=== PATIENT | male | born 1935 | race Caucasian/White ===

== ENCOUNTER 2016-11-16 12:30 | Outpatient (RCR) | payer MEDICARE ==
--- OUTSIDE RECORDS SUMMARY | 2016-08-22 10:51 | XMS REPORT | Continuity of Care Document ---
Author Author [facility] Organization [facility] Address Unknown Phone Unavailable Care Team Providers Care Box Builder Name Role Phone MANUEL EARL DO PCP Insurance Providers Payer Name Policy Number Subscriber Name Relationship [employer] [id number] Mandeep Torres 17 Self / Same As Patient [facility] [id number] Mandeep Torres 17 Self / Same As Patient Advance Directives Directive Response Recorded Date/Time Advance Directives No 09/01/14 10:00am Health Care Power of Tele Rn No 09/01/14 10:00am Organ Donor Yes 09/01/14 10:00am Resuscitation Status Full Code 09/01/14 10:00am Problems No known problems or medical conditions. Medications Medication Dose Route Sig Days/Qty Instructions Order Date Discontinued Date Status Atenolol 50 Mg PO DAILY 04/04/09 Active Gemfibrozil 600 Mg PO DAILY 04/04/09 Active Warfarin Sodium 5 Mg PO DAILY 04/04/09 Active Naproxen 04/04/09 07/27/10 Discontinued [Coum] 04/04/09 07/27/10 Discontinued Naproxen 440 Mg PO TWICE A DAY 07/27/10 11/03/12 Discontinued Famotidine (Pepcid) 1 Each PO DAILY 07/27/10 Active Naproxen Sodium 220 Mg PO TWICE A DAY 12/10/10 11/03/12 Discontinued [Vitamin B12 ] DIRECTED 12/10/10 Active Salsalate (Disalcid) 1 Each PO TWICE A DAY 11/03/12 05/19/14 Discontinued Colchicine 0.6 Mg PO 11/03/12 Active Polyethylene Glycol 0 PO BEDTIME 119 Qty 17 GM 11/06/12 Active Docusate Sodium 100 Mg PO TWICE A DAY 60 Qty 11/06/12 Active Bisacodyl 5 Mg PO DAILY 3 Days 11/06/12 Active Social History Social History Problem Response Recorded Date/Time Alcohol Use Occasionally Uses 11/06/2012 1:33pm Recreational Drug Use No 11/06/2012 1:33pm Recent Foreign Travel No 11/06/2012 1:33pm Recent Infectious Disease Exposure No 11/06/2012 1:33pm Hospitalization with Isolation Denies 11/06/2012 1:33pm Do you dip or chew tobacco? Yes 09/01/2014 10:00am Hospital Discharge Instructions No hospital discharge instructions. Plan of Care No plan of care. Functional Status No functional status results. Allergies, Adverse Reactions, Alerts Allergen Type Severity Reaction Status Last Updated simvastatin ([id number]) Allergy Unknown Active 07/27/10 Immunizations Name Given Type Date of Pneumonia Vaccine 10/26/10 Historical Date of Influenza Vaccine 06/25/12 Historical Vital Signs Acute Vital Signs Vital Response Date/Time Height 5 ft 10 in Weight 194 lb Body Mass Index 27.8 kg/m^2 Results No known relevant diagnostic tests, laboratory data and/or discharge summary. Procedures No known history of procedures. Encounters Encounter Location Date/Time Discharged Recurring Via [facility] 08/31/14 12:34pm
[2016-08-22 11:15] LABS: BASOPHILS % (AUTO) 1 % (0-10); EOSINOPHILS # (AUTO) 0.2 10^3/uL (0.0-0.3); EOSINOPHILS % (AUTO) 2 % (0-10); LYMPHOCYTES # (AUTO) 0.8 X 10^3 (1.0-4.0); LYMPHOCYTES % (AUTO) 13 % (12-44); MEAN CORPUSCULAR HEMOGLOBIN 25 PG (25-34); MEAN CORPUSCULAR HGB CONC 30 G/DL (32-36); MEAN CORPUSCULAR VOLUME 84 FL (80-99); MEAN PLATELET VOLUME 8.5 FL (7.4-10.4); MONOCYTES # (AUTO) 0.8 X 10^3 (0.0-1.0); MONOCYTES % (AUTO) 12 % (0-12); NEUTROPHILS # (AUTO) 4.8 X 10^3 (1.8-7.8); NEUTROPHILS % (AUTO) 73 % (42-75); PLATELET COUNT 610 10^3/uL (130-400); RED BLOOD COUNT 2.97 10^6/uL (4.35-5.85); RED CELL DISTRIBUTION WIDTH 15.4 % (10.0-14.5); WHITE BLOOD COUNT 6.6 10^3/uL (4.3-11.0)
[2016-08-22 11:37] LABS: ALANINE AMINOTRANSFERASE 6 U/L (0-55); ALBUMIN 3.7 G/DL (3.2-4.5); ANION GAP 9 MMOL/L (5-14); ASPARTATE AMINO TRANSFERASE 21 U/L (5-34); BILIRUBIN,TOTAL 0.4 MG/DL (0.1-1.0); BLOOD UREA NITROGEN 20 MG/DL (7-18); BUN/CREATININE RATIO 18; CALCIUM 8.4 MG/DL (8.5-10.1); CARBON DIOXIDE 22 MMOL/L (21-32); CHLORIDE 108 MMOL/L (98-107); CREATININE SERUM 1.14 MG/DL (0.60-1.30); GFR ESTIMATED > 60; GLUCOSE 115 MG/DL (70-105); POTASSIUM 4.2 MMOL/L (3.6-5.0); SODIUM 139 MMOL/L (135-145); TOTAL PROTEIN 6.8 G/DL (6.4-8.2)
[2016-08-22 15:18] LABS: %SAT TOTAL IRON BINDING CAPIC 2 % (15-50); TIBC 446 ug/dL (280-380)
[2016-08-23 07:41] LABS: FERRITIN 15 ng/mL (25-300); UIBC 436 ug/dL (55-450)
[2016-08-24 13:17] LABS: BASOPHILS % (AUTO) 1 % (0-10); EOSINOPHILS # (AUTO) 0.2 10^3/uL (0.0-0.3); EOSINOPHILS % (AUTO) 3 % (0-10); LYMPHOCYTES # (AUTO) 0.7 X 10^3 (1.0-4.0); LYMPHOCYTES % (AUTO) 12 % (12-44); MEAN CORPUSCULAR HEMOGLOBIN 27 PG (25-34); MEAN CORPUSCULAR HGB CONC 32 G/DL (32-36); MEAN CORPUSCULAR VOLUME 83 FL (80-99); MEAN PLATELET VOLUME 8.6 FL (7.4-10.4); MONOCYTES # (AUTO) 0.9 X 10^3 (0.0-1.0); MONOCYTES % (AUTO) 15 % (0-12); NEUTROPHILS # (AUTO) 4.2 X 10^3 (1.8-7.8); NEUTROPHILS % (AUTO) 70 % (42-75); PLATELET COUNT 550 10^3/uL (130-400); RED BLOOD COUNT 3.64 10^6/uL (4.35-5.85); RED CELL DISTRIBUTION WIDTH 15.3 % (10.0-14.5)
[2016-08-24 14:38] LABS: PROTHROMBIN TIME PATIENT 22.5 SEC (12.2-14.7)
[2016-11-14 09:57] LABS: BASOPHILS % (AUTO) 1 % (0-10); EOSINOPHILS # (AUTO) 0.1 10^3/uL (0.0-0.3); EOSINOPHILS % (AUTO) 3 % (0-10); LYMPHOCYTES # (AUTO) 0.7 X 10^3 (1.0-4.0); LYMPHOCYTES % (AUTO) 19 % (12-44); MEAN CORPUSCULAR HEMOGLOBIN 31 PG (25-34); MEAN CORPUSCULAR HGB CONC 32 G/DL (32-36); MEAN CORPUSCULAR VOLUME 97 FL (80-99); MEAN PLATELET VOLUME 9.1 FL (7.4-10.4); MONOCYTES # (AUTO) 0.5 X 10^3 (0.0-1.0); MONOCYTES % (AUTO) 12 % (0-12); NEUTROPHILS # (AUTO) 2.6 X 10^3 (1.8-7.8); NEUTROPHILS % (AUTO) 66 % (42-75); PLATELET COUNT 320 10^3/uL (130-400); RED BLOOD COUNT 3.52 10^6/uL (4.35-5.85); RED CELL DISTRIBUTION WIDTH 16.2 % (10.0-14.5)
[2016-11-14 10:43] LABS: BILIRUBIN,TOTAL 0.3 MG/DL (0.1-1.0); CALCIUM 8.4 MG/DL (8.5-10.1); CREATININE SERUM 1.32 MG/DL (0.60-1.30); TOTAL PROTEIN 7.1 G/DL (6.4-8.2)
[~2016-11-16 12:30] MED LIST: AC325T PO; ASCO100083 PO; ATEN50TA PO; BISA5TAB81 PO; CHOL10003 PO; COLC0.6T53 PO; COUM; CYAN100053 IJ; DCS100C PO; FAMO20TA5 PO; FERRIC CARBOXYMALTOSE (CANCER) 750 MG in NS (IVPB) CANCER CENTER 250 ML IV SCH; FURO20TA4 PO; GMFB600T PO; NAPR-243; NAPR-243 PO; NAPR220C PO; POLY119P PO; POTA20TA15 PO; POTA20TA7 PO; SALS750T17 PO; TETR15DR82 OU; VITAMIN B12; WARF5TAB6 PO; WRF5T PO
[2016-11-16] MEDS ORDERED: FERRIC CARBOXYMALTOSE (CANCER) 750 MG in NS (IVPB) CANCER CENTER 250 ML IV SCH (13:45)
== END 2016-11-20 | disposition home or self-care (01) ==
LOC: ONC 12:30
PROVIDERS: ATTEND Internal Medicine Hematology & Oncology
DX: D50.9 Iron deficiency anemia, unspecified (principal); K90.9 Intestinal malabsorption, unspecified; I10 Essential (primary) hypertension; E78.5 Hyperlipidemia, unspecified; Z79.899 Other long term (current) drug therapy; Z79.01 Long term (current) use of anticoagulants
CPT/HCPCS: 36415; 80053; 82728; 83540; 85025; 85610; 96365; 99213

== ENCOUNTER 2017-01-05 13:07 | Outpatient (RCR) | payer MEDICARE ==
--- OUTSIDE RECORDS SUMMARY | 2016-11-23 12:42 | XMS REPORT | Continuity of Care Document ---
Author Author [facility] Organization [facility] Address Unknown Phone Unavailable Care Team Providers Care Test Engineer Name Role Phone MANUEL EARL DO PCP Insurance Providers Payer Name Policy Number Subscriber Name Relationship [employer] [id number] Mandeep Torres 17 Self / Same As Patient [facility] [id number] Mandeep Torres 17 Self / Same As Patient Advance Directives Directive Response Recorded Date/Time Advance Directives No 09/01/14 10:00am Health Care Power of Supervisor Sewer Maintenance No 09/01/14 10:00am Organ Donor Yes 09/01/14 [...] Type Severity Reaction Status Last Updated simvastatin ([id number]) Allergy Unknown Active 07/27/10 Immunizations Name Given [...] Encounters Encounter Location Date/Time Discharged Recurring Via [facility] 08/31/14 12:34pm
[2017-01-03 10:55] LABS: BASOPHILS % (AUTO) 0 % (0-10); EOSINOPHILS # (AUTO) 0.1 10^3/uL (0.0-0.3); EOSINOPHILS % (AUTO) 1 % (0-10); LYMPHOCYTES # (AUTO) 0.5 X 10^3 (1.0-4.0); LYMPHOCYTES % (AUTO) 10 % (12-44); MEAN CORPUSCULAR HEMOGLOBIN 32 PG (25-34); MEAN CORPUSCULAR HGB CONC 32 G/DL (32-36); MEAN CORPUSCULAR VOLUME 103 FL (80-99); MEAN PLATELET VOLUME 9.2 FL (7.4-10.4); MONOCYTES # (AUTO) 0.6 X 10^3 (0.0-1.0); MONOCYTES % (AUTO) 12 % (0-12); NEUTROPHILS # (AUTO) 3.5 X 10^3 (1.8-7.8); NEUTROPHILS % (AUTO) 76 % (42-75); PLATELET COUNT 324 10^3/uL (130-400); RED BLOOD COUNT 3.55 10^6/uL (4.35-5.85); RED CELL DISTRIBUTION WIDTH 14.4 % (10.0-14.5); WHITE BLOOD COUNT 4.6 10^3/uL (4.3-11.0)
[2017-01-03 11:50] LABS: ALBUMIN 3.8 G/DL (3.2-4.5); BILIRUBIN,TOTAL 0.4 MG/DL (0.1-1.0); CALCIUM 8.2 MG/DL (8.5-10.1); CREATININE SERUM 1.17 MG/DL (0.60-1.30); POTASSIUM 4.1 MMOL/L (3.6-5.0)
== END 2017-02-21 | disposition home or self-care (01) ==
LOC: ONC 13:07
PROVIDERS: ATTEND Internal Medicine Hematology & Oncology
DX: D50.9 Iron deficiency anemia, unspecified (principal); K90.9 Intestinal malabsorption, unspecified; I10 Essential (primary) hypertension; E78.5 Hyperlipidemia, unspecified; Z79.899 Other long term (current) drug therapy
CPT/HCPCS: 36415; 80053; 82728; 83540; 85025; 96365; 99213

== ENCOUNTER 2017-04-13 13:14 | Outpatient (RCR) | payer MEDICARE ==
[2017-04-03 10:28] LABS: BASOPHILS % (AUTO) 1 % (0-10); EOSINOPHILS % (AUTO) 1 % (0-10); LYMPHOCYTES # (AUTO) 0.5 X 10^3 (1.0-4.0); LYMPHOCYTES % (AUTO) 12 % (12-44); MEAN CORPUSCULAR HEMOGLOBIN 21 PG (25-34); MEAN CORPUSCULAR HGB CONC 28 G/DL (32-36); MEAN CORPUSCULAR VOLUME 77 FL (80-99); MEAN PLATELET VOLUME 8.6 FL (7.4-10.4); MONOCYTES # (AUTO) 0.7 X 10^3 (0.0-1.0); MONOCYTES % (AUTO) 16 % (0-12); NEUTROPHILS # (AUTO) 3.1 X 10^3 (1.8-7.8); NEUTROPHILS % (AUTO) 71 % (42-75); PLATELET COUNT 559 10^3/uL (130-400); RED BLOOD COUNT 2.85 10^6/uL (4.35-5.85); RED CELL DISTRIBUTION WIDTH 19.8 % (10.0-14.5); WHITE BLOOD COUNT 4.3 10^3/uL (4.3-11.0)
[2017-04-03 11:17] LABS: ALANINE AMINOTRANSFERASE 6 U/L (0-55); ALBUMIN 3.7 GM/DL (3.2-4.5); ANION GAP 9 MMOL/L (5-14); ASPARTATE AMINO TRANSFERASE 10 U/L (5-34); BILIRUBIN,TOTAL 0.3 MG/DL (0.1-1.0); BLOOD UREA NITROGEN 16 MG/DL (7-18); BUN/CREATININE RATIO 15; CALCIUM 8.5 MG/DL (8.5-10.1); CARBON DIOXIDE 22 MMOL/L (21-32); CHLORIDE 111 MMOL/L (98-107); GFR ESTIMATED > 60; GLUCOSE 114 MG/DL (70-105); POTASSIUM 3.9 MMOL/L (3.6-5.0); SODIUM 142 MMOL/L (135-145); TOTAL PROTEIN 6.9 GM/DL (6.4-8.2)
[2017-04-03 12:18] LABS: INR 4.1 (0.8-1.4); PROTHROMBIN TIME PATIENT 39.6 SEC (12.2-14.7)
[2017-04-06 13:39] LABS: BASOPHILS % (AUTO) 0 % (0-10); EOSINOPHILS # (AUTO) 0.1 10^3/uL (0.0-0.3); EOSINOPHILS % (AUTO) 1 % (0-10); LYMPHOCYTES # (AUTO) 0.6 X 10^3 (1.0-4.0); LYMPHOCYTES % (AUTO) 10 % (12-44); MEAN CORPUSCULAR HEMOGLOBIN 22 PG (25-34); MEAN CORPUSCULAR HGB CONC 29 G/DL (32-36); MEAN CORPUSCULAR VOLUME 79 FL (80-99); MEAN PLATELET VOLUME 8.5 FL (7.4-10.4); MONOCYTES # (AUTO) 0.8 X 10^3 (0.0-1.0); MONOCYTES % (AUTO) 15 % (0-12); NEUTROPHILS % (AUTO) 73 % (42-75); PLATELET COUNT 542 10^3/uL (130-400); RED BLOOD COUNT 3.13 10^6/uL (4.35-5.85); RED CELL DISTRIBUTION WIDTH 21.9 % (10.0-14.5); WHITE BLOOD COUNT 5.5 10^3/uL (4.3-11.0)
[~2017-04-13 13:14] MED LIST changes: +ACETAMINOPHEN 500 MG TAB (TYLENOL) CANCER CTR ONE; +NS IV 500 ML (CANCER CENTER) 500 ML ONE; +diphenhydrAMINE 25 MG TAB (BENADRYL) CANCER CENTER PO ONE
== END 2017-06-24 | disposition home or self-care (01) ==
LOC: ONC 13:14
PROVIDERS: ATTEND Internal Medicine Hematology & Oncology
DX: D50.9 Iron deficiency anemia, unspecified (principal); K90.9 Intestinal malabsorption, unspecified; I10 Essential (primary) hypertension; E78.5 Hyperlipidemia, unspecified; Z79.899 Other long term (current) drug therapy; Z79.01 Long term (current) use of anticoagulants
CPT/HCPCS: 36415; 36430; 80053; 82728; 83540; 85025; 85610; 86850; 86900; 86901; 86920; 96365; 99213

== ENCOUNTER → 2017-10-18 | Outpatient (RCR) | payer MEDICARE ==
[2017-07-20 10:48] LABS: BASOPHILS % (AUTO) 1 % (0-10); EOSINOPHILS # (AUTO) 0.2 10^3/uL (0.0-0.3); EOSINOPHILS % (AUTO) 4 % (0-10); HEMATOCRIT 36 % (40-54); HEMOGLOBIN 11.6 G/DL (13.3-17.7); LYMPHOCYTES # (AUTO) 0.7 X 10^3 (1.0-4.0); LYMPHOCYTES % (AUTO) 15 % (12-44); MEAN CORPUSCULAR HEMOGLOBIN 32 PG (25-34); MEAN CORPUSCULAR HGB CONC 33 G/DL (32-36); MEAN CORPUSCULAR VOLUME 99 FL (80-99); MEAN PLATELET VOLUME 9.4 FL (7.4-10.4); MONOCYTES # (AUTO) 0.6 X 10^3 (0.0-1.0); MONOCYTES % (AUTO) 13 % (0-12); NEUTROPHILS % (AUTO) 68 % (42-75); PLATELET COUNT 338 10^3/uL (130-400); RED BLOOD COUNT 3.61 10^6/uL (4.35-5.85); RED CELL DISTRIBUTION WIDTH 14.9 % (10.0-14.5); WHITE BLOOD COUNT 4.4 10^3/uL (4.3-11.0)
[2017-07-20 11:15] LABS: ALANINE AMINOTRANSFERASE 8 U/L (0-55); ALBUMIN 3.8 GM/DL (3.2-4.5); ALKALINE PHOSPHATASE 201 U/L (40-136); BILIRUBIN,TOTAL 0.3 MG/DL (0.1-1.0); BUN/CREATININE RATIO 19; CALCIUM 8.8 MG/DL (8.5-10.1); CARBON DIOXIDE 22 MMOL/L (21-32); CHLORIDE 112 MMOL/L (98-107); CREATININE SERUM 0.97 MG/DL (0.60-1.30); GFR ESTIMATED > 60; GLUCOSE 149 MG/DL (70-105); SODIUM 142 MMOL/L (135-145); TOTAL PROTEIN 7.2 GM/DL (6.4-8.2)
[2017-10-16 11:03] LABS: BASOPHILS % (AUTO) 1 % (0-10); EOSINOPHILS # (AUTO) 0.2 10^3/uL (0.0-0.3); EOSINOPHILS % (AUTO) 3 % (0-10); HEMATOCRIT 27 % (40-54); HEMOGLOBIN 8.6 G/DL (13.3-17.7); LYMPHOCYTES # (AUTO) 0.8 X 10^3 (1.0-4.0); LYMPHOCYTES % (AUTO) 16 % (12-44); MEAN CORPUSCULAR HEMOGLOBIN 27 PG (25-34); MEAN CORPUSCULAR HGB CONC 31 G/DL (32-36); MEAN CORPUSCULAR VOLUME 85 FL (80-99); MEAN PLATELET VOLUME 9.3 FL (7.4-10.4); MONOCYTES # (AUTO) 0.7 X 10^3 (0.0-1.0); MONOCYTES % (AUTO) 14 % (0-12); NEUTROPHILS # (AUTO) 3.5 X 10^3 (1.8-7.8); NEUTROPHILS % (AUTO) 67 % (42-75); PLATELET COUNT 457 10^3/uL (130-400); RED BLOOD COUNT 3.21 10^6/uL (4.35-5.85); RED CELL DISTRIBUTION WIDTH 14.2 % (10.0-14.5); WHITE BLOOD COUNT 5.3 10^3/uL (4.3-11.0)
[2017-10-16 11:18] LABS: INR 1.7 (0.8-1.4); PROTHROMBIN TIME PATIENT 20.3 SEC (12.2-14.7)
[2017-10-16 11:29] LABS: ALANINE AMINOTRANSFERASE 7 U/L (0-55); ALBUMIN 3.8 GM/DL (3.2-4.5); ALKALINE PHOSPHATASE 92 U/L (40-136); BILIRUBIN,TOTAL 0.4 MG/DL (0.1-1.0); BUN/CREATININE RATIO 21; CALCIUM 8.8 MG/DL (8.5-10.1); CARBON DIOXIDE 22 MMOL/L (21-32); CHLORIDE 108 MMOL/L (98-107); CREATININE SERUM 1.07 MG/DL (0.60-1.30); GFR ESTIMATED > 60; GLUCOSE 158 MG/DL (70-105); SODIUM 141 MMOL/L (135-145); TOTAL PROTEIN 7.3 GM/DL (6.4-8.2)
[~2017-10-18] MED LIST changes: -ACETAMINOPHEN 500 MG TAB (TYLENOL) CANCER CTR ONE; +FERRIC CARBOXYMALTOSE 750 MG/15 ML (CANCER CTR) IV SCH; -NS IV 500 ML (CANCER CENTER) 500 ML ONE; -diphenhydrAMINE 25 MG TAB (BENADRYL) CANCER CENTER PO ONE
== END | disposition home or self-care (01) ==
LOC: ONC 07-20 10:40
PROVIDERS: ATTEND Internal Medicine Hematology & Oncology
DX: D50.9 Iron deficiency anemia, unspecified (principal); K90.9 Intestinal malabsorption, unspecified; I10 Essential (primary) hypertension; E78.5 Hyperlipidemia, unspecified; Z79.899 Other long term (current) drug therapy; Z79.01 Long term (current) use of anticoagulants
CPT/HCPCS: 36415; 80053; 82728; 83540; 83550; 85025; 85610; 96365; 99213

== ENCOUNTER 2018-02-07 12:42 | Outpatient (RCR) | payer MEDICARE ==
[2018-02-05 09:25] LABS: BASOPHILS % (AUTO) 0 % (0-10); EOSINOPHILS # (AUTO) 0.2 10^3/uL (0.0-0.3); EOSINOPHILS % (AUTO) 5 % (0-10); HEMATOCRIT 36 % (40-54); HEMOGLOBIN 11.7 G/DL (13.3-17.7); LYMPHOCYTES # (AUTO) 1.1 X 10^3 (1.0-4.0); LYMPHOCYTES % (AUTO) 23 % (12-44); MEAN CORPUSCULAR HEMOGLOBIN 32 PG (25-34); MEAN CORPUSCULAR HGB CONC 33 G/DL (32-36); MEAN CORPUSCULAR VOLUME 97 FL (80-99); MEAN PLATELET VOLUME 9.6 FL (7.4-10.4); MONOCYTES # (AUTO) 0.8 X 10^3 (0.0-1.0); MONOCYTES % (AUTO) 17 % (0-12); NEUTROPHILS # (AUTO) 2.7 X 10^3 (1.8-7.8); NEUTROPHILS % (AUTO) 55 % (42-75); PLATELET COUNT 323 10^3/uL (130-400); RED BLOOD COUNT 3.71 10^6/uL (4.35-5.85); RED CELL DISTRIBUTION WIDTH 15.3 % (10.0-14.5); WHITE BLOOD COUNT 4.9 10^3/uL (4.3-11.0)
[2018-02-05 09:47] LABS: ALANINE AMINOTRANSFERASE < 6 U/L (0-55); ALBUMIN 4.1 GM/DL (3.2-4.5); ALKALINE PHOSPHATASE 113 U/L (40-136); BILIRUBIN,TOTAL 0.5 MG/DL (0.1-1.0); BUN/CREATININE RATIO 15; CALCIUM 8.7 MG/DL (8.5-10.1); CARBON DIOXIDE 23 MMOL/L (21-32); CHLORIDE 109 MMOL/L (98-107); CREATININE SERUM 0.97 MG/DL (0.60-1.30); GFR ESTIMATED > 60; GLUCOSE 112 MG/DL (70-105); POTASSIUM 4.2 MMOL/L (3.6-5.0); SODIUM 139 MMOL/L (135-145); TOTAL PROTEIN 7.2 GM/DL (6.4-8.2)
[~2018-02-07 12:42] MED LIST changes: -FERRIC CARBOXYMALTOSE (CANCER) 750 MG in NS (IVPB) CANCER CENTER 250 ML IV SCH; -FERRIC CARBOXYMALTOSE 750 MG/15 ML (CANCER CTR) IV SCH
== END 2018-05-06 | disposition home or self-care (01) ==
LOC: ONC 12:42
PROVIDERS: ATTEND Internal Medicine Hematology & Oncology
DX: D50.9 Iron deficiency anemia, unspecified (principal); K90.9 Intestinal malabsorption, unspecified; I10 Essential (primary) hypertension; E78.5 Hyperlipidemia, unspecified; Z79.899 Other long term (current) drug therapy; Z79.01 Long term (current) use of anticoagulants
CPT/HCPCS: 36415; 80053; 82728; 83540; 85025; 99213

== ENCOUNTER 2018-05-16 12:53 | Outpatient (RCR) | payer MEDICARE ==
[2018-05-07 10:06] LABS: BASOPHILS % (AUTO) 1 % (0-10); EOSINOPHILS # (AUTO) 0.2 10^3/uL (0.0-0.3); EOSINOPHILS % (AUTO) 5 % (0-10); HEMATOCRIT 30 % (40-54); HEMOGLOBIN 9.5 G/DL (13.3-17.7); LYMPHOCYTES # (AUTO) 0.9 X 10^3 (1.0-4.0); LYMPHOCYTES % (AUTO) 24 % (12-44); MEAN CORPUSCULAR HEMOGLOBIN 28 PG (25-34); MEAN CORPUSCULAR HGB CONC 32 G/DL (32-36); MEAN CORPUSCULAR VOLUME 90 FL (80-99); MEAN PLATELET VOLUME 9.3 FL (7.4-10.4); MONOCYTES # (AUTO) 0.5 X 10^3 (0.0-1.0); MONOCYTES % (AUTO) 14 % (0-12); NEUTROPHILS # (AUTO) 2.1 X 10^3 (1.8-7.8); NEUTROPHILS % (AUTO) 57 % (42-75); PLATELET COUNT 361 10^3/uL (130-400); RED BLOOD COUNT 3.34 10^6/uL (4.35-5.85); RED CELL DISTRIBUTION WIDTH 13.7 % (10.0-14.5); WHITE BLOOD COUNT 3.7 10^3/uL (4.3-11.0)
[2018-05-07 10:26] LABS: ALANINE AMINOTRANSFERASE 7 U/L (0-55); ALKALINE PHOSPHATASE 76 U/L (40-136); BILIRUBIN,TOTAL 0.4 MG/DL (0.1-1.0); BUN/CREATININE RATIO 19; CALCIUM 8.7 MG/DL (8.5-10.1); CARBON DIOXIDE 21 MMOL/L (21-32); CHLORIDE 109 MMOL/L (98-107); GFR ESTIMATED > 60; GLUCOSE 128 MG/DL (70-105); POTASSIUM 4.6 MMOL/L (3.6-5.0); SODIUM 139 MMOL/L (135-145); TOTAL PROTEIN 7.2 GM/DL (6.4-8.2)
[~2018-05-16 12:53] MED LIST changes: +FERRIC CARBOXYMALTOSE (CANCER) 750 MG in NS (IVPB) CANCER CENTER 250 ML IV SCH
== END 2018-05-25 | disposition home or self-care (01) ==
LOC: ONC 12:53
PROVIDERS: ATTEND Internal Medicine Hematology & Oncology
DX: D50.9 Iron deficiency anemia, unspecified (principal); K90.9 Intestinal malabsorption, unspecified; I10 Essential (primary) hypertension; E78.5 Hyperlipidemia, unspecified; Z79.899 Other long term (current) drug therapy; Z79.01 Long term (current) use of anticoagulants
CPT/HCPCS: 36415; 80053; 82728; 83540; 85025; 96365

== ENCOUNTER 2018-08-08 14:26 | Outpatient (RCR) | payer MEDICARE ==
[2018-07-30 10:44] LABS: BASOPHILS % (AUTO) 1 % (0-10); EOSINOPHILS # (AUTO) 0.2 10^3/uL (0.0-0.3); EOSINOPHILS % (AUTO) 5 % (0-10); HEMATOCRIT 36 % (40-54); HEMOGLOBIN 11.6 G/DL (13.3-17.7); LYMPHOCYTES # (AUTO) 0.6 X 10^3 (1.0-4.0); LYMPHOCYTES % (AUTO) 18 % (12-44); MEAN CORPUSCULAR HEMOGLOBIN 32 PG (25-34); MEAN CORPUSCULAR HGB CONC 32 G/DL (32-36); MEAN CORPUSCULAR VOLUME 98 FL (80-99); MEAN PLATELET VOLUME 9.9 FL (7.4-10.4); MONOCYTES # (AUTO) 0.5 X 10^3 (0.0-1.0); MONOCYTES % (AUTO) 14 % (0-12); NEUTROPHILS # (AUTO) 2.2 X 10^3 (1.8-7.8); NEUTROPHILS % (AUTO) 64 % (42-75); PLATELET COUNT 289 10^3/uL (130-400); RED CELL DISTRIBUTION WIDTH 16.6 % (10.0-14.5); WHITE BLOOD COUNT 3.4 10^3/uL (4.3-11.0)
[2018-07-30 11:03] LABS: ALBUMIN 4.2 GM/DL (3.2-4.5); BILIRUBIN,TOTAL 0.4 MG/DL (0.1-1.0); CALCIUM 8.7 MG/DL (8.5-10.1); CREATININE SERUM 1.2 MG/DL (0.60-1.30); POTASSIUM 4.1 MMOL/L (3.6-5.0); TOTAL PROTEIN 7.2 GM/DL (6.4-8.2)
== END 2018-10-28 | disposition home or self-care (01) ==
LOC: ONC 14:26
PROVIDERS: ATTEND Internal Medicine Hematology & Oncology
DX: D50.9 Iron deficiency anemia, unspecified (principal); K90.9 Intestinal malabsorption, unspecified; I10 Essential (primary) hypertension; E78.5 Hyperlipidemia, unspecified; Z79.899 Other long term (current) drug therapy; Z79.01 Long term (current) use of anticoagulants
CPT/HCPCS: 36415; 80053; 82728; 83540; 85025; 96365

== ENCOUNTER 2018-11-09 05:47 | Outpatient (CLI) | payer MEDICARE ==
[~2018-11-09] VITALS: Ht 177.8 cm; Wt 76.2 kg
== END 2018-11-09 13:28 | disposition home or self-care (01) ==
LOC: PREOP 05:47
PROVIDERS: ATTEND Surgery
DX: Z01.818 Encounter for other preprocedural examination (principal)

== ENCOUNTER 2018-11-12 08:22 | Day surgery (SDC) | payer MEDICARE ==
[~2018-11-12] VITALS: Ht 177.8 cm; Wt 76.2 kg
[~2018-11-12 08:22] MED LIST changes: +CHOL100045 PO; +CNC1KV IM; +FAMO20TA3 PO; -FERRIC CARBOXYMALTOSE (CANCER) 750 MG in NS (IVPB) CANCER CENTER 250 ML IV SCH; +GEMF600T8 PO; +WARF-48 PO
--- OUTSIDE RECORDS SUMMARY | 2018-11-12 08:29 | XMS REPORT | Continuity of Care Document ---
Author Author Via [facility] Organization Via [facility] Address Unknown Phone Unavailable Allergies Active Description Code Type Severity Reaction Onset Reported/Identified Relationship to Patient Clinical Status Yes simvastatin [id number] Drug Allergy Unknown N/A 07/27/2010 Medications There is no data. Problems Date Dx Coded Attending Type Code Diagnosis Diagnosed By 07/29/2010 Ot 272.4 07/29/2010 Ot 280.9 07/29/2010 Ot 281.1 07/29/2010 Ot 305.1 07/29/2010 Ot 401.9 07/29/2010 Ot 412 07/29/2010 Ot 427.31 07/29/2010 Ot 455.3 07/29/2010 Ot 493.90 07/29/2010 Ot 530.10 07/29/2010 Ot 530.81 07/29/2010 Ot 535.40 07/29/2010 Ot V12.79 07/29/2010 Ot V45.81 07/29/2010 Ot V58.61 12/13/2010 Ot 272.4 12/13/2010 Ot 276.50 12/13/2010 Ot 280.9 12/13/2010 Ot 281.1 12/13/2010 Ot 305.00 12/13/2010 Ot 338.29 12/13/2010 Ot 401.9 12/13/2010 Ot 414.01 12/13/2010 Ot 427.31 12/13/2010 Ot 458.0 12/13/2010 Ot 530.81 12/13/2010 Ot 579.9 12/13/2010 Ot 715.90 12/13/2010 Ot 724.5 12/13/2010 Ot V12.79 12/13/2010 Ot V15.82 12/13/2010 Ot V45.81 12/13/2010 Ot V58.61 12/13/2010 Ot V58.64 03/22/2011 Ot 280.9 IRON DEFIC ANEMIA NOS 03/22/2011 Ot V58.69 OTH MED,LT, CURRENT USE 11/03/2012 Ot 429.3 CARDIOMEGALY 11/03/2012 Ot 564.00 UNSPEC CONSTIPATION 11/06/2012 Ot 564.00 UNSPEC CONSTIPATION 11/06/2012 Ot 787.3 FLATUL/ ERUCTAT/GAS PAIN 11/06/2012 Ot 789.00 ABDOMINAL PAIN, UNSPECIFIED SITE 08/11/2014 MANUEL EARL DO Ot 280.9 08/11/2014 MANUEL EARL DO Ot 285.9 11/29/2014 MANUEL EARL DO Ot 285.9 ANEMIA NOS 12/16/2014 Ot 786.09 12/16/2014 Ot 786.9 12/16/2014 Ot 266.2 12/16/2014 Ot 272.4 12/16/2014 Ot 280.9 12/16/2014 Ot 305.1 12/16/2014 Ot 401.9 12/16/2014 Ot 414.00 12/16/2014 Ot 427.31 12/16/2014 Ot 496 12/16/2014 Ot V45.81 12/16/2014 Ot V58.61 12/16/2014 Ot V58.69 12/16/2014 Ot 266.2 12/16/2014 Ot 272.4 12/16/2014 Ot 280.9 12/16/2014 Ot 401.9 12/16/2014 Ot 414.00 12/16/2014 Ot 427.31 12/16/2014 Ot 496 12/16/2014 Ot V15.82 12/16/2014 Ot V45.81 12/16/2014 Ot V58.61 12/16/2014 Ot V58.69 12/16/2014 Ot 266.2 12/16/2014 Ot 272.4 12/16/2014 Ot 280.9 12/16/2014 Ot 305.00 12/16/2014 Ot 401.9 12/16/2014 Ot 414.00 12/16/2014 Ot 427.31 12/16/2014 Ot 496 12/16/2014 Ot V15.82 12/16/2014 Ot V45.81 12/16/2014 Ot V58.61 12/16/2014 Ot V58.69 12/16/2014 Ot 266.2 12/16/2014 Ot 272.4 12/16/2014 Ot 274.9 12/16/2014 Ot 280.9 12/16/2014 Ot 305.00 12/16/2014 Ot 401.9 12/16/2014 Ot 414.00 12/16/2014 Ot 427.31 12/16/2014 Ot 496 12/16/2014 Ot V15.82 12/16/2014 Ot V45.81 12/16/2014 Ot V58.61 12/16/2014 Ot V58.69 12/16/2014 Ot 266.2 12/16/2014 Ot 272.4 12/16/2014 Ot 274.9 12/16/2014 Ot 280.9 12/16/2014 Ot 305.00 12/16/2014 Ot 401.9 12/16/2014 Ot 414.00 12/16/2014 Ot 427.31 12/16/2014 Ot 496 12/16/2014 Ot V15.82 12/16/2014 Ot V45.81 12/16/2014 Ot V58.69 12/16/2014 NIKKIE GARCIA, ÁNGELA Sheldon Ot 266.2 12/16/2014 NIKKIE GARCIA, ÁNGELA Sheldon Ot 272.4 12/16/2014 NIKKIE GARCIA, ÁNGELA Sheldon Ot 274.9 12/16/2014 NIKKIE GARCIA, ÁNGELA Sheldon Ot 280.9 12/16/2014 NIKKIE GARCIA, ÁNGELA Sheldon Ot 305.00 12/16/2014 NIKKIE GARCIA, ÁNGELA Sheldon Ot 401.9 12/16/2014 NIKKIE GARCIA, ÁNGELA Sheldon Ot 414.00 12/16/2014 NIKKIE GARCIA, ÁNGELA Sheldon Ot 427.31 12/16/2014 NIKKIE GARCIA, ÁNGELA Sheldon Ot 496 12/16/2014 NIKKIE GARCIA, ÁNGELA Sheldon Ot V15.82 12/16/2014 NIKKIE GARCIA, ÁNGELA Sheldon Ot V45.81 12/16/2014 NIKKIE GARCIA, ÁNGELA Sheldon Ot V58.61 12/16/2014 NIKKIE GARCIA, ÁNGELA Sheldon Ot V58.69 12/16/2014 NIKKIE GARCIA, ÁNGELA Sheldon Ot 266.2 12/16/2014 NIKKIE GARCIA, ÁNGELA Sheldon Ot 272.4 12/16/2014 NIKKIE GARCIA, ÁNGELA Sheldon Ot 274.9 12/16/2014 NIKKIE GARCIA, ÁNGELA Pito Ot 280.9 12/16/2014 NIKKIE GARCIA, ÁNGELA Pito Ot 305.00 12/16/2014 NIKKIE GARCIA, ÁNGELA K Ot 401.9 12/16/2014 NIKKIE GARCIA, ÁNGELA Sheldon Ot 414.00 12/16/2014 NIKKIE GARCIA, ÁNGELA Pito Ot 427.31 12/16/2014 NIKKIE GARCIA, ÁNGELA Sheldon Ot 496 12/16/2014 NIKKIE GARCIA, ÁNGELA Pito Ot 564.00 12/16/2014 NIKKIE GARCIA, ÁNGELA Sheldon Ot 787.3 12/16/2014 NIKKIE GARCIA, ÁNGELA Sheldon Ot 789.00 12/16/2014 NIKKIE GARCIA, ÁNGELA Sheldon Ot V15.82 12/16/2014 NIKKIE GARCIA, ÁNGELA Sheldon Ot V45.81 12/16/2014 NIKKIE GARCIA, ÁNGELA Sheldon Ot V58.61 12/16/2014 NIKKIE GARCIA, ÁNGELA Sheldon Ot V58.69 12/16/2014 NIKKIE GARCIA, ÁNGELA Sheldon Ot 266.2 12/16/2014 NIKKIE GARCIA, ÁNGELA Sheldon Ot 272.4 12/16/2014 NIKKIE GARCIA, ÁNGELA Sheldon Ot 274.9 12/16/2014 NIKKIE GARCIA, ÁNGELA Sheldon Ot 280.9 12/16/2014 NIKKIE GARCIA, ÁNGELA Sheldon Ot 305.00 12/16/2014 NIKKIE GARCIA, ÁNGELA Sheldon Ot 401.9 12/16/2014 NIKKIE GARCIA, ÁNGELA Sheldon Ot 414.00 12/16/2014 NIKKIE GARCIA, ÁNGELA Sheldon Ot 427.31 12/16/2014 NIKKIE GARCIA, ÁNGELA Sheldon Ot 491.22 12/16/2014 NIKKIE GARCIA, ÁNGELA Sheldon Ot 715.90 12/16/2014 NIKKIE GARCIA, ÁNGELA Sheldon Ot V15.82 12/16/2014 NIKKIE GARCIA, ÁNGELA Sheldon Ot V45.81 12/16/2014 NIKKIE GARCIA, ÁNGELA Sheldon Ot V58.61 12/16/2014 NIKKIE GARCIA, ÁNGELA Sheldon Ot V58.69 12/16/2014 EARL DO, MANUEL Pardo Ot 280.9 12/16/2014 EARL DO, MANUEL J Ot 285.9 12/16/2014 EARL DO, MANUEL J Ot 285.9 01/09/2015 EARL DO, MANUEL J Ot 285.9 01/09/2015 EARL DO, MANUEL J Ot 285.9 01/09/2015 EARL DO, MANUEL J Ot 285.9 01/09/2015 EARL DO, MANUEL J Ot 285.9 01/10/2015 EARL DO, MANUEL J Ot 285.9 01/10/2015 EARL DO, MANUEL J Ot 285.9 01/10/2015 EARL DO, MANUEL J Ot 285.9 01/12/2015 EARL DO, MANUEL J Ot 285.9 01/14/2015 EARL DO, MANUEL J Ot 285.9 01/14/2015 EARL DO, MANUEL J Ot 285.9 01/14/2015 MANUEL EARL DO Ot 285.9 01/19/2015 MANUEL EARL DO, Ot 285.9 01/28/2015 MAUNEL EARL DO, Ot 285.9 01/28/2015 MANUEL EARL DO, Ot 285.9 01/30/2015 MANUEL EARL DO Ot 412 01/30/2015 MANUEL EARL DO Ot 486 01/30/2015 MANUEL EARL DO Ot 599.0 01/30/2015 MANUEL EARL DO Ot 412 01/30/2015 MANUEL EARL DO Ot 486 01/30/2015 MANUEL EARL DO, Ot 599.0 01/31/2015 MANUEL EARL DO Ot 412 01/31/2015 MANUEL EARL DO, Ot 486 01/31/2015 MANUEL EARL DO, Ot 599.0 01/31/2015 MANUEL EARL DO Ot 038.9 SEPTICEMIA NOS 01/31/2015 MANUEL EARL DO, Ot 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 01/31/2015 MANUEL EARL DO, Ot 272.4 HYPERLIPIDEMIA NEC/NOS 01/31/2015 MANUEL EARL DO, Ot 276.1 HYPOSMOLALITY 01/31/2015 MANUEL EARL DO, Ot 280.9 IRON DEFIC ANEMIA NOS 01/31/2015 MANUEL EARL DO, Ot 286.9 COAGULAT DEFECT NEC/NOS 01/31/2015 MANUEL EARL DO, Ot 291.81 ALCOHOL WITHDRAWAL 01/31/2015 MANUEL EARL DO, Ot 293.0 DELIRIUM DUE TO CONDITIONS CLASSIFIED EL 01/31/2015 MANUEL EARL DO, Ot 303.91 ALCOH DEP NEC/NOS-CONTIN 01/31/2015 MANUEL EARL DO Ot 412 OLD MYOCARDIAL INFARCT 01/31/2015 MANUEL EARL DO, Ot 414.00 CORON ATHEROSCLER NOS TYPE VESSEL, NATIV 01/31/2015 MANUEL EARL DO, Ot 427.31 ATRIAL FIBRILLATION 01/31/2015 MANUEL EARL DO, Ot 486 PNEUMONIA, ORGANISM NOS 01/31/2015 MANUEL EARL DO Ot 491.21 OBSTR CHRONIC BRONCHITIS, W (ACUTE) EXAC 01/31/2015 EARL DO, MANUEL J Ot 518.81 ACUTE RESPIRATORY FAILURE 01/31/2015 MANUEL EARL DO Ot 530.81 ESOPHAGEAL REFLUX 01/31/2015 MANUEL EARL DO Ot 535.40 OT SPECIFIED GASTRITIS,W/O MENTION OF H 01/31/2015 MANUEL EARL DO Ot 570 ACUTE NECROSIS OF LIVER 01/31/2015 MANUEL EARL DO Ot 571.1 AC ALCOHOLIC HEPATITIS 01/31/2015 MANUEL EARL DO Ot 584.9 ACUTE RENAL FAILURE, UNSPECIFIED 01/31/2015 MANUEL EARL DO Ot 599.0 URIN TRACT INFECTION NOS 01/31/2015 MANUEL EARL DO Ot 715.90 OSTEOARTHROS NOS-UNSPEC 01/31/2015 MANUEL EARL DO Ot 995.92 SEVERE SEPSIS 01/31/2015 MANUEL EARL DO Ot V15.82 HISTORY OF TOBACCO USE 01/31/2015 MANUEL EARL DO Ot V45.81 AORTOCORONARY BYPASS 02/22/2015 MANUEL EARL DO Ot 285.9 03/03/2015 MANUEL EARL DO Ot 285.9 03/04/2015 Ot 786.09 03/04/2015 Ot 786.9 03/04/2015 Ot 266.2 03/04/2015 Ot 272.4 03/04/2015 Ot 280.9 03/04/2015 Ot 305.1 03/04/2015 Ot 401.9 03/04/2015 Ot 414.00 03/04/2015 Ot 427.31 03/04/2015 Ot 496 03/04/2015 Ot V45.81 03/04/2015 Ot V58.61 03/04/2015 Ot V58.69 03/04/2015 Ot 266.2 03/04/2015 Ot 272.4 03/04/2015 Ot 280.9 03/04/2015 Ot 401.9 03/04/2015 Ot 414.00 03/04/2015 Ot 427.31 03/04/2015 Ot 496 03/04/2015 Ot V15.82 03/04/2015 Ot V45.81 03/04/2015 Ot V58.61 03/04/2015 Ot V58.69 03/04/2015 Ot 266.2 03/04/2015 Ot 272.4 03/04/2015 Ot 280.9 03/04/2015 Ot 305.00 03/04/2015 Ot 401.9 03/04/2015 Ot 414.00 03/04/2015 Ot 427.31 03/04/2015 Ot 496 03/04/2015 Ot V15.82 03/04/2015 Ot V45.81 03/04/2015 Ot V58.61 03/04/2015 Ot V58.69 03/04/2015 Ot 266.2 03/04/2015 Ot 272.4 03/04/2015 Ot 274.9 03/04/2015 Ot 280.9 03/04/2015 Ot 305.00 03/04/2015 Ot 401.9 03/04/2015 Ot 414.00 03/04/2015 Ot 427.31 03/04/2015 Ot 496 03/04/2015 Ot V15.82 03/04/2015 Ot V45.81 03/04/2015 Ot V58.61 03/04/2015 Ot V58.69 03/04/2015 Ot 266.2 03/04/2015 Ot 272.4 03/04/2015 Ot 274.9 03/04/2015 Ot 280.9 03/04/2015 Ot 305.00 03/04/2015 Ot 401.9 03/04/2015 Ot 414.00 03/04/2015 Ot 427.31 03/04/2015 Ot 496 03/04/2015 Ot V15.82 03/04/2015 Ot V45.81 03/04/2015 Ot V58.69 03/04/2015 NIKKIE GARCIA, ÁNGELA Sheldon Ot 266.2 03/04/2015 NIKKIE GARCIA, ÁNGELA Sheldon Ot 272.4 03/04/2015 NIKKIE GARCIA, ÁNGELA Sheldon Ot 274.9 03/04/2015 NIKKIE GARCIA, ÁNGELA Sheldon Ot 280.9 03/04/2015 NIKKIE GARCIA, ÁNGELA Sheldon Ot 305.00 03/04/2015 NIKKIE GARCIA, ÁNGELA Sheldon Ot 401.9 03/04/2015 NIKKIE GARCIA, ÁNGELA Sheldon Ot 414.00 03/04/2015 NIKKIE GARCIA, ÁNGELA Sheldon Ot 427.31 03/04/2015 NIKKIE GARCIA, ÁNGELA Sheldon Ot 496 03/04/2015 NIKKIE GARCIA, ÁNGELA Sheldon Ot V15.82 03/04/2015 NIKKIE GARCIA, ÁNGELA Sheldon Ot V45.81 03/04/2015 NIKKIE GARCIA, ÁNGELA Sheldon Ot V58.61 03/04/2015 NIKKIE GARCIA, ÁNGELA Sheldon Ot V58.69 03/04/2015 NIKKIE GARCIA, ÁNGELA Sheldon Ot 266.2 03/04/2015 NIKKIE GARCIA, ÁNGELA Sheldon Ot 272.4 03/04/2015 NIKKIE GARCIA, ÁNGELA Pito Ot 274.9 03/04/2015 NIKKIE GARCIA, ÁNGELA K Ot 280.9 03/04/2015 NIKKIE GARCIA, ÁNGELA Sheldon Ot 305.00 03/04/2015 NIKKIE GARCIA, ÁNGELA Sheldon Ot 401.9 03/04/2015 NIKKIE GARCIA, ÁNGELA Pito Ot 414.00 03/04/2015 NIKKIE GARCIA, ÁNGELA Pito Ot 427.31 03/04/2015 NIKKIE GARCIA, ÁNGELA Pito Ot 496 03/04/2015 NIKKIE GARCIA, ÁNGELA Sheldon Ot 564.00 03/04/2015 NIKKIE GARCIA, ÁNGELA Sheldon Ot 787.3 03/04/2015 NIKKIE GARCIA, ÁNGELA Sheldon Ot 789.00 03/04/2015 NIKKIE GARCIA, ÁNGELA Sheldon Ot V15.82 03/04/2015 NIKKIE GARCIA, ÁNGELA Sheldon Ot V45.81 03/04/2015 NIKKIE GARCIA, ÁNGELA Sheldon Ot V58.61 03/04/2015 NIKKIE GARCIA, ÁNGELA Sheldon Ot V58.69 03/04/2015 NIKKIE GARCIA, ÁNGELA Sheldon Ot 266.2 03/04/2015 NIKKIE GARCIA, ÁNGELA Sheldon Ot 272.4 03/04/2015 NIKKIE GARCIA, ÁNGELA Sheldon Ot 274.9 03/04/2015 NIKKIE GARCIA, ÁNGELA Sheldon Ot 280.9 03/04/2015 NIKKIE GARCIA, ÁNGELA Sheldon Ot 305.00 03/04/2015 NIKKIE GARCIA, ÁNGELA Sheldon Ot 401.9 03/04/2015 NIKKIE GARCIA, ÁNGELA Sheldon Ot 414.00 03/04/2015 NIKKIE GARCIA, ÁNGELA Pito Ot 427.31 03/04/2015 NIKKIE GARCIA, ÁNGELA Sheldon Ot 491.22 03/04/2015 NIKKIE GARCIA, ÁNGELA Sheldon Ot 715.90 03/04/2015 NIKKIE GARCIA, ÁNGELA Sheldon Ot V15.82 03/04/2015 NIKKIE GARCIA, ÁNGELA Sheldon Ot V45.81 03/04/2015 NIKKIE GARCIA, ÁNGELA Sheldon Ot V58.61 03/04/2015 NIKKIE GARCIA, ÁNGELA Pito Ot V58.69 03/04/2015 MANUEL EARL DO Ot 280.9 03/04/2015 MANUEL EARL DO Ot 285.9 03/04/2015 MANUEL EARL DO Ot 285.9 03/04/2015 MANUEL EARL DO Ot 285.9 03/05/2015 Ot 786.09 03/05/2015 Ot 786.9 03/05/2015 Ot 266.2 03/05/2015 Ot 272.4 03/05/2015 Ot 280.9 03/05/2015 Ot 305.1 03/05/2015 Ot 401.9 03/05/2015 Ot 414.00 03/05/2015 Ot 427.31 03/05/2015 Ot 496 03/05/2015 Ot V45.81 03/05/2015 Ot V58.61 03/05/2015 Ot V58.69 03/05/2015 Ot 266.2 03/05/2015 Ot 272.4 03/05/2015 Ot 280.9 03/05/2015 Ot 401.9 03/05/2015 Ot 414.00 03/05/2015 Ot 427.31 03/05/2015 Ot 496 03/05/2015 Ot V15.82 03/05/2015 Ot V45.81 03/05/2015 Ot V58.61 03/05/2015 Ot V58.69 03/05/2015 Ot 266.2 03/05/2015 Ot 272.4 03/05/2015 Ot 280.9 03/05/2015 Ot 305.00 03/05/2015 Ot 401.9 03/05/2015 Ot 414.00 03/05/2015 Ot 427.31 03/05/2015 Ot 496 03/05/2015 Ot V15.82 03/05/2015 Ot V45.81 03/05/2015 Ot V58.61 03/05/2015 Ot V58.69 03/05/2015 Ot 266.2 03/05/2015 Ot 272.4 03/05/2015 Ot 274.9 03/05/2015 Ot 280.9 03/05/2015 Ot 305.00 03/05/2015 Ot 401.9 03/05/2015 Ot 414.00 03/05/2015 Ot 427.31 03/05/2015 Ot 496 03/05/2015 Ot V15.82 03/05/2015 Ot V45.81 03/05/2015 Ot V58.61 03/05/2015 Ot V58.69 03/05/2015 Ot 266.2 03/05/2015 Ot 272.4 03/05/2015 Ot 274.9 03/05/2015 Ot 280.9 03/05/2015 Ot 305.00 03/05/2015 Ot 401.9 03/05/2015 Ot 414.00 03/05/2015 Ot 427.31 03/05/2015 Ot 496 03/05/2015 Ot V15.82 03/05/2015 Ot V45.81 03/05/2015 Ot V58.69 03/05/2015 NIKKIE GARCIA, ÁNGELA Pito Ot 266.2 03/05/2015 NIKKIE GARCIA, ÁNGELA Pito Ot 272.4 03/05/2015 NIKKIE GARCIA, ÁNGELA K Ot 274.9 03/05/2015 NIKKIE GARCIA, ÁNGELA K Ot 280.9 03/05/2015 NIKKIE GARCIA, ÁNGELA K Ot 305.00 03/05/2015 NIKKIE GARCIA, ÁNGELA K Ot 401.9 03/05/2015 NIKKIE GARCIA, ÁNGELA K Ot 414.00 03/05/2015 NIKKIE GARCIA, ÁNGELA K Ot 427.31 03/05/2015 NIKKIE GARCIA, ÁNGELA Pito Ot 496 03/05/2015 NIKKIE GARCIA, ÁNGELA Pito Ot V15.82 03/05/2015 NIKKIE GARCIA, ÁNGELA Pito Ot V45.81 03/05/2015 NIKKIE GARCIA, ÁNGELA Pito Ot V58.61 03/05/2015 NIKKIE GARCIA, ÁNGELA Pito Ot V58.69 03/05/2015 NIKKIE GARCIA, ÁNGELA Pito Ot 266.2 03/05/2015 NIKKIE GARCIA, ÁNGELA Pito Ot 272.4 03/05/2015 NIKKIE GARCIA, ÁNGELA Pito Ot 274.9 03/05/2015 NIKKIE GARCIA, ÁNGELA K Ot 280.9 03/05/2015 NIKKIE GARCIA, ÁNGELA K Ot 305.00 03/05/2015 NIKKIE GARCIA, ÁNGELA K Ot 401.9 03/05/2015 NIKKIE GARCIA, ÁNGELA K Ot 414.00 03/05/2015 NIKKIE GARCIA, ÁNGELA K Ot 427.31 03/05/2015 NIKKIE GARCIA, ÁNGELA K Ot 496 03/05/2015 NIKKIE GARCIA, ÁNGELA K Ot 564.00 03/05/2015 NIKKIE GARCIA, ÁNGELA K Ot 787.3 03/05/2015 NIKKIE GARCIA, ÁNGELA Pito Ot 789.00 03/05/2015 NIKKIE GARCIA, ÁNGELA Pito Ot V15.82 03/05/2015 NIKKIE GARCIA, ÁNGELA Pito Ot V45.81 03/05/2015 NIKKIE GARCIA, ÁNGELA Pito Ot V58.61 03/05/2015 NIKKIE GARCIA, ÁNGELA K Ot V58.69 03/05/2015 INKKIE GARCIA, ÁNGELA Pito Ot 266.2 03/05/2015 NIKKIE GARCIA, ÁNGELA K Ot 272.4 03/05/2015 NIKKIE GARCIA, ÁNGELA Sheldon Ot 274.9 03/05/2015 NIKKIE GARCIA, ÁNGELA Sheldon Ot 280.9 03/05/2015 NIKKIE GARCIA, ÁNGELA Sheldon Ot 305.00 03/05/2015 NIKKIE GARCIA, ÁNGELA Sheldon Ot 401.9 03/05/2015 NIKKIE GARCIA, ÁNGELA Sheldon Ot 414.00 03/05/2015 NIKKIE GARCIA, ÁNGELA Sheldon Ot 427.31 03/05/2015 NIKKIE GARCIA, ÁNGELA Sheldon Ot 491.22 03/05/2015 NIKKIE GARCIA, ÁNGELA Sheldon Ot 715.90 03/05/2015 NIKKIE GARCIA, ÁNGELA Sheldon Ot V15.82 03/05/2015 NIKKIE GARCIA, ÁNGELA Sheldon Ot V45.81 03/05/2015 NIKKIE GARCIA, ÁNGELA Sheldon Ot V58.61 03/05/2015 NIKKIE GARCIA, ÁNGELA Sheldon Ot V58.69 03/05/2015 MADY BLACKMON MANUEL Edvin Ot 280.9 03/05/2015 MANUEL EARL DO Ot 285.9 03/05/2015 MANUEL EARL DO Ot 285.9 03/05/2015 MANUEL EARL DO Ot 285.9 03/12/2015 Ot 786.09 03/12/2015 Ot 786.9 03/12/2015 Ot 266.2 03/12/2015 Ot 272.4 03/12/2015 Ot 280.9 03/12/2015 Ot 305.1 03/12/2015 Ot 401.9 03/12/2015 Ot 414.00 03/12/2015 Ot 427.31 03/12/2015 Ot 496 03/12/2015 Ot V45.81 03/12/2015 Ot V58.61 03/12/2015 Ot V58.69 03/12/2015 Ot 266.2 03/12/2015 Ot 272.4 03/12/2015 Ot 280.9 03/12/2015 Ot 401.9 03/12/2015 Ot 414.00 03/12/2015 Ot 427.31 03/12/2015 Ot 496 03/12/2015 Ot V15.82 03/12/2015 Ot V45.81 03/12/2015 Ot V58.61 03/12/2015 Ot V58.69 03/12/2015 Ot 266.2 03/12/2015 Ot 272.4 03/12/2015 Ot 280.9 03/12/2015 Ot 305.00 03/12/2015 Ot 401.9 03/12/2015 Ot 414.00 03/12/2015 Ot 427.31 03/12/2015 Ot 496 03/12/2015 Ot V15.82 03/12/2015 Ot V45.81 03/12/2015 Ot V58.61 03/12/2015 Ot V58.69 03/12/2015 Ot 266.2 03/12/2015 Ot 272.4 03/12/2015 Ot 274.9 03/12/2015 Ot 280.9 03/12/2015 Ot 305.00 03/12/2015 Ot 401.9 03/12/2015 Ot 414.00 03/12/2015 Ot 427.31 03/12/2015 Ot 496 03/12/2015 Ot V15.82 03/12/2015 Ot V45.81 03/12/2015 Ot V58.61 03/12/2015 Ot V58.69 03/12/2015 Ot 266.2 03/12/2015 Ot 272.4 03/12/2015 Ot 274.9 03/12/2015 Ot 280.9 03/12/2015 Ot 305.00 03/12/2015 Ot 401.9 03/12/2015 Ot 414.00 03/12/2015 Ot 427.31 03/12/2015 Ot 496 03/12/2015 Ot V15.82 03/12/2015 Ot V45.81 03/12/2015 Ot V58.69 03/12/2015 NIKKIE GARCIA, ÁNGELA Sheldon Ot 266.2 03/12/2015 NIKKIE GARCIA, ÁNGELA Sheldon Ot 272.4 03/12/2015 NIKKIE GARCIA, ÁNGELA Sheldon Ot 274.9 03/12/2015 NIKKIE GARCIA, ÁNGELA Sheldon Ot 280.9 03/12/2015 NIKKIE GARCIA, ÁNGELA Sheldon Ot 305.00 03/12/2015 NIKKIE GARCIA, ÁNGELA Sheldon Ot 401.9 03/12/2015 NIKKIE GARCIA, ÁNGELA Sheldon Ot 414.00 03/12/2015 NIKKIE GARCIA, ÁNGELA Sheldon Ot 427.31 03/12/2015 NIKKIE GARCIA, ÁNGELA Sheldon Ot 496 03/12/2015 NIKKIE GARCIA, ÁNGELA Sheldon Ot V15.82 03/12/2015 NIKKIE GARCIA, ÁNGELA Sheldon Ot V45.81 03/12/2015 NIKKIE GARCIA, ÁNGELA Sheldon Ot V58.61 03/12/2015 NIKKIE GARCIA, ÁNGELA Sheldon Ot V58.69 03/12/2015 NIKKIE GARCIA, ÁNGELA Sheldon Ot 266.2 03/12/2015 NIKKIE GARCIA, ÁNGELA Sheldon Ot 272.4 03/12/2015 NIKKIE GARCIA, ÁNGELA Sheldon Ot 274.9 03/12/2015 NIKKIE GARCIA, ÁNGELA Sheldon Ot 280.9 03/12/2015 NIKKIE GARCIA, ÁNGELA Pito Ot 305.00 03/12/2015 NIKKIE GARCIA, ÁNGELA Sheldon Ot 401.9 03/12/2015 NIKKIE GARCIA, ÁNGELA Sheldon Ot 414.00 03/12/2015 NIKKIE GARCIA, ÁNGELA Sheldon Ot 427.31 03/12/2015 NIKKIE GARCIA, ÁNGELA Sheldon Ot 496 03/12/2015 NIKKIE GARCIA, ÁNGELA Sheldon Ot 564.00 03/12/2015 NIKKIE GARCIA, ÁNGELA Sheldon Ot 787.3 03/12/2015 NIKKIE GARCIA, ÁNGELA Sheldon Ot 789.00 03/12/2015 NIKKIE GARCIA, ÁNGELA Sheldon Ot V15.82 03/12/2015 NIKKIE GARCIA, ÁNGELA Sheldon Ot V45.81 03/12/2015 NIKKIE GARCIA, ÁNGELA Sheldon Ot V58.61 03/12/2015 NIKKIE GARCIA, ÁNGELA Sheldon Ot V58.69 03/12/2015 NIKKIE GARCIA, ÁNGELA Sheldon Ot 266.2 03/12/2015 NIKKIE GARCIA, ÁNGELA Sheldon Ot 272.4 03/12/2015 NIKKIE GARCIA, ÁNGELA Sheldon Ot 274.9 03/12/2015 NIKKIE GARCIA, ÁNGELA Sheldon Ot 280.9 03/12/2015 NIKKIE GARCIA, ÁNGELA Sheldon Ot 305.00 03/12/2015 NIKKIE GARCIA, ÁNGELA Sheldon Ot 401.9 03/12/2015 NIKKIE GARCIA, ÁNGELA Sheldon Ot 414.00 03/12/2015 NIKKIE GARCIA, ÁNGELA Pito Ot 427.31 03/12/2015 NIKKIE GARCIA, ÁNGELA Sheldon Ot 491.22 03/12/2015 NIKKIE GARCIA, ÁNGELA Sheldon Ot 715.90 03/12/2015 NIKKIE GARCIA, ÁNGELA Sheldon Ot V15.82 03/12/2015 NIKKIE GARCIA, ÁNGELA Sheldon Ot V45.81 03/12/2015 NIKKIE GARCIA, ÁNGELA Sheldon Ot V58.61 03/12/2015 NIKKIE GARCIA, ÁNGELA Sheldon Ot V58.69 03/12/2015 MANUEL EARL DO Ot 280.9 03/12/2015 EARLMANUEL YOUNGER DO Ot 285.9 03/12/2015 EARLMANUEL YOUNGER DO Ot 285.9 03/12/2015 EARLMANUEL YOUNGER DO Ot 285.9 03/12/2015 EARLMANUEL YOUNGER DO Ot 511.9 03/12/2015 EARL DO MANUEL Pardo Ot 511.9 03/23/2015 EARL DO MANUEL Pardo Ot 511.9 04/09/2015 EARL DO MANUEL Pardo Ot 285.9 ANEMIA NOS 05/01/2015 EARL DO MANUEL Pardo Ot 511.9 05/12/2015 EARL DO MANUEL Pardo Ot 285.9 05/13/2015 EARL DO MANUEL Pardo Ot 285.9 05/22/2015 EARL DO MANUEL Pardo Ot 285.9 06/09/2015 EARL DO MANUEL Pardo Ot 285.9 07/08/2015 EARL DO MANUEL Pardo Ot 285.9 07/22/2015 EARL DO MANUEL Pardo Ot 285.9 09/04/2015 Ot D64.9 09/17/2015 Ot D64.9 09/24/2015 EARL DO MANUEL Pardo Ot D64.9 10/08/2015 EARL DO MANUEL Padro Ot D64.9 11/11/2015 EARL DO MANUEL Pardo Ot D64.9 11/19/2015 EARL DO MANUEL Pardo Ot D64.9 12/02/2015 EARL DO MANUEL Pardo Ot 285.9 12/02/2015 EARL DO MANUEL Pardo Ot 285.9 12/02/2015 Ot D64.9 12/02/2015 EARL DO MANUEL Pardo Ot D64.9 12/02/2015 EARL DO MANUEL Pardo Ot D64.9 12/02/2015 EARL DO MANUEL Pardo Ot D64.9 ANEMIA, UNSPECIFIED 01/22/2016 ÁNGELA LUNDY MD Ot D50.9 IRON DEFICIENCY ANEMIA, UNSPECIFIED 01/22/2016 ÁNGELA LUNDY MD Ot E78.5 HYPERLIPIDEMIA, UNSPECIFIED 01/22/2016 ÁNGELA LUNDY MD Ot I10 ESSENTIAL (PRIMARY) HYPERTENSION 01/22/2016 ÁNGELA LUNDY MD Ot K90.9 INTESTINAL MALABSORPTION, UNSPECIFIED 01/22/2016 ÁNGELA LUNDY MD Ot Z79.899 OTHER PREFLIGHT MECHANIC (CURRENT) DRUG THERAPY 02/02/2016 ÁNGELA LUNDY MD Ot D50.9 IRON DEFICIENCY ANEMIA, UNSPECIFIED 02/02/2016 ÁNGELA LUNDY MD Ot E78.5 HYPERLIPIDEMIA, UNSPECIFIED 02/02/2016 NIKKIE MD, ÁNGELA K Ot I10 ESSENTIAL (PRIMARY) HYPERTENSION 02/02/2016 NIKKIE GARCIA, ÁNGELA Sheldon Ot K90.9 INTESTINAL MALABSORPTION, UNSPECIFIED 02/02/2016 NIKKIE GARCIA, ÁNGELA Sheldon Ot Z79.899 OTHER [facility] (CURRENT) DRUG THERAPY 03/14/2016 NIKKIE GARCIA, ÁNGELA Sheldon Ot D50.9 IRON DEFICIENCY ANEMIA, UNSPECIFIED 03/14/2016 NIKKIE GARCIA, ÁNGELA Sheldon Ot E78.5 HYPERLIPIDEMIA, UNSPECIFIED 03/14/2016 NIKKIE GARCIA, ÁNGELA Sheldon Ot I10 ESSENTIAL (PRIMARY) HYPERTENSION 03/14/2016 NIKKIE GARCIA, ÁNGELA Sheldon Ot K90.9 INTESTINAL MALABSORPTION, UNSPECIFIED 03/14/2016 NIKKIE GARCIA, ÁNGELA Sheldon Ot Z79.899 OTHER PREFLIGHT MECHANIC (CURRENT) DRUG THERAPY 03/16/2016 NIKKIE GARCIA, ÁNGELA Sheldon Ot D50.9 IRON DEFICIENCY ANEMIA, UNSPECIFIED 03/16/2016 NIKKIE GARCIA, ÁNGELA Sheldon Ot E78.5 HYPERLIPIDEMIA, UNSPECIFIED 03/16/2016 ÁNGELA LUNDY MD Ot I10 ESSENTIAL (PRIMARY) HYPERTENSION 03/16/2016 ÁNGELA LUNDY MD, Ot K90.9 INTESTINAL MALABSORPTION, UNSPECIFIED 03/16/2016 NIKKIE GARCIA, ÁNGELA Sheldon Ot Z79.899 OTHER PREFLIGHT MECHANIC (CURRENT) DRUG THERAPY 04/14/2016 ÁNGELA LUNDY MD, Ot D50.9 IRON DEFICIENCY ANEMIA, UNSPECIFIED 04/14/2016 ÁNGELA LUNDY MD, Ot E78.5 HYPERLIPIDEMIA, UNSPECIFIED 04/14/2016 ÁNGELA LUNDY MD Ot I10 ESSENTIAL (PRIMARY) HYPERTENSION 04/14/2016 NIKKIE GARCIA, ÁNGELA Sheldon Ot K90.9 INTESTINAL MALABSORPTION, UNSPECIFIED 04/14/2016 NIKKIE GARCIA, ÁNGELA Sheldon Ot Z79.899 OTHER PREFLIGHT MECHANIC (CURRENT) DRUG THERAPY 04/25/2016 ÁNGELA LUNDY MD, Ot D50.9 IRON DEFICIENCY ANEMIA, UNSPECIFIED 04/25/2016 NIKKIE GARCIA, ÁNGELA Sheldon Ot E78.5 HYPERLIPIDEMIA, UNSPECIFIED 04/25/2016 ÁNGELA LUNDY MD Ot I10 ESSENTIAL (PRIMARY) HYPERTENSION 04/25/2016 ÁNGELA LUNDY MD Ot K90.9 INTESTINAL MALABSORPTION, UNSPECIFIED 04/25/2016 ÁNGELA LUNDY MD Ot Z79.899 OTHER [facility] (CURRENT) DRUG THERAPY 06/13/2016 ÁNGELA LUNDY MD, Ot D50.9 IRON DEFICIENCY ANEMIA, UNSPECIFIED 06/13/2016 ÁNGELA LUNDY MD Ot E78.5 HYPERLIPIDEMIA, UNSPECIFIED 06/13/2016 ÁNGELA LUNDY MD Ot I10 ESSENTIAL (PRIMARY) HYPERTENSION 06/13/2016 NIKKIE GARCIA, ÁNGELA Pito Ot K90.9 INTESTINAL MALABSORPTION, UNSPECIFIED 06/13/2016 NIKKIE GARCIA ÁNGELA Pito Ot Z79.899 OTHER PREFLIGHT MECHANIC (CURRENT) DRUG THERAPY 06/14/2016 NIKKIE GARCIA ÁNGELA Pito Ot D50.9 IRON DEFICIENCY ANEMIA, UNSPECIFIED 06/14/2016 ÁNGELA LUNDY MD Ot E78.5 HYPERLIPIDEMIA, UNSPECIFIED 06/14/2016 ÁNGELA LUNDY MD Ot I10 ESSENTIAL (PRIMARY) HYPERTENSION 06/14/2016 ÁNGELA LUNDY MD Ot K90.9 INTESTINAL MALABSORPTION, UNSPECIFIED 06/14/2016 NIKKIE GARCIA ÁNGELA Pito Ot Z79.899 OTHER [facility] (CURRENT) DRUG THERAPY 07/05/2016 Ot 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 07/05/2016 Ot 272.4 HYPERLIPIDEMIA NEC/NOS 07/05/2016 Ot 280.9 IRON DEFIC ANEMIA NOS 07/05/2016 Ot 401.9 HYPERTENSION NOS 07/05/2016 Ot 414.00 CORON ATHEROSCLER NOS TYPE VESSEL, NATIV 07/05/2016 Ot 427.31 ATRIAL FIBRILLATION 07/05/2016 Ot 496 CHR AIRWAY OBSTRUCT NEC 07/05/2016 Ot V15.82 HISTORY OF TOBACCO USE 07/05/2016 Ot V45.81 AORTOCORONARY BYPASS 07/05/2016 Ot V58.61 ANTICOAGULANTS,LT,CURRENT USE 07/05/2016 Ot V58.69 OTH MED,LT, CURRENT USE 07/05/2016 Ot 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 07/05/2016 Ot 272.4 HYPERLIPIDEMIA NEC/NOS 07/05/2016 Ot 280.9 IRON DEFIC ANEMIA NOS 07/05/2016 Ot 305.00 ALCOHOL ABUSE-UNSPEC 07/05/2016 Ot 401.9 HYPERTENSION NOS 07/05/2016 Ot 414.00 CORON ATHEROSCLER NOS TYPE VESSEL, NATIV 07/05/2016 Ot 427.31 ATRIAL FIBRILLATION 07/05/2016 Ot 496 CHR AIRWAY OBSTRUCT NEC 07/05/2016 Ot V15.82 HISTORY OF TOBACCO USE 07/05/2016 Ot V45.81 AORTOCORONARY BYPASS 07/05/2016 Ot V58.61 ANTICOAGULANTS,LT,CURRENT USE 07/05/2016 Ot V58.69 OTH MED,LT, CURRENT USE 07/05/2016 Ot 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 07/05/2016 Ot 272.4 HYPERLIPIDEMIA NEC/NOS 07/05/2016 Ot 274.9 GOUT NOS 07/05/2016 Ot 280.9 IRON DEFIC ANEMIA NOS 07/05/2016 Ot 305.00 ALCOHOL ABUSE-UNSPEC 07/05/2016 Ot 401.9 HYPERTENSION NOS 07/05/2016 Ot 414.00 CORON ATHEROSCLER NOS TYPE VESSEL, NATIV 07/05/2016 Ot 427.31 ATRIAL FIBRILLATION 07/05/2016 Ot 496 CHR AIRWAY OBSTRUCT NEC 07/05/2016 Ot V15.82 HISTORY OF TOBACCO USE 07/05/2016 Ot V45.81 AORTOCORONARY BYPASS 07/05/2016 Ot V58.61 ANTICOAGULANTS,LT,CURRENT USE 07/05/2016 Ot V58.69 OTH MED,LT, CURRENT USE 07/05/2016 Ot 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 07/05/2016 Ot 272.4 HYPERLIPIDEMIA NEC/NOS 07/05/2016 Ot 274.9 GOUT NOS 07/05/2016 Ot 280.9 IRON DEFIC ANEMIA NOS 07/05/2016 Ot 305.00 ALCOHOL ABUSE-UNSPEC 07/05/2016 Ot 401.9 HYPERTENSION NOS 07/05/2016 Ot 414.00 CORON ATHEROSCLER NOS TYPE VESSEL, NATIV 07/05/2016 Ot 427.31 ATRIAL FIBRILLATION 07/05/2016 Ot 496 CHR AIRWAY OBSTRUCT NEC 07/05/2016 Ot V15.82 HISTORY OF TOBACCO USE 07/05/2016 Ot V45.81 AORTOCORONARY BYPASS 07/05/2016 Ot V58.69 OTH MED,LT, CURRENT USE 07/05/2016 NIKKIE GARCIA, ÁNGELA Sheldon Ot 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 07/05/2016 NIKKIE GARCIA, ÁNGELA Sheldon Ot 272.4 HYPERLIPIDEMIA NEC/NOS 07/05/2016 NIKKIE GARCIA, ÁNGELA Sheldon Ot 274.9 GOUT NOS 07/05/2016 NIKKIE GARCIA, ÁNGELA Sheldon Ot 280.9 IRON DEFIC ANEMIA NOS 07/05/2016 NIKKIE GARCIA, ÁNGELA Sheldon Ot 305.00 ALCOHOL ABUSE-UNSPEC 07/05/2016 NKIKIE GARCIA, ÁNGELA Sheldon Ot 401.9 HYPERTENSION NOS 07/05/2016 NIKKIE GARCIA, ÁNGELA Sheldon Ot 414.00 CORON ATHEROSCLER NOS TYPE VESSEL, NATIV 07/05/2016 NIKKIE GARCIA, ÁNGELA Sheldon Ot 427.31 ATRIAL FIBRILLATION 07/05/2016 NIKKIE GARCIA, ÁNGELA Sheldon Ot 496 CHR AIRWAY OBSTRUCT NEC 07/05/2016 ÁNGELA LUNDY MD Ot V15.82 HISTORY OF TOBACCO USE 07/05/2016 ÁNGELA LUNDY MD Ot V45.81 AORTOCORONARY BYPASS 07/05/2016 ÁNEGLA LUNDY MD Ot V58.61 ANTICOAGULANTS,LT,CURRENT USE 07/05/2016 ÁNGELA LUNDY MD Ot V58.69 OTH MED,LT,CURRENT USE 07/05/2016 ÁNGELA LUNDY MD Ot 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 07/05/2016 ÁNGELA LUNDY MD Ot 272.4 HYPERLIPIDEMIA NEC/NOS 07/05/2016 ÁNGELA LUNDY MD Ot 274.9 GOUT NOS 07/05/2016 ÁNGELA LUNDY MD Ot 280.9 IRON DEFIC ANEMIA NOS 07/05/2016 ÁNGELA LUNDY MD Ot 305.00 ALCOHOL ABUSE-UNSPEC 07/05/2016 ÁNGELA LUNDY MD Ot 401.9 HYPERTENSION NOS 07/05/2016 ÁNGELA LUNDY MD Ot 414.00 CORON ATHEROSCLER NOS TYPE VESSEL, NATIV 07/05/2016 ÁNGELA LUNDY MD Ot 427.31 ATRIAL FIBRILLATION 07/05/2016 ÁNGELA LUNDY MD Ot 496 CHR AIRWAY OBSTRUCT NEC 07/05/2016 ÁNGELA LUNDY MD Ot 564.00 UNSPEC CONSTIPATION 07/05/2016 ÁNGELA LUNDY MD Ot 787.3 FLATUL/ERUCTAT/GAS PAIN 07/05/2016 ÁNGELA LUNDY MD Ot 789.00 ABDOMINAL PAIN, UNSPECIFIED SITE 07/05/2016 ÁNGELA LUNDY MD Ot V15.82 HISTORY OF TOBACCO USE 07/05/2016 ÁNGELA LUNDY MD Ot V45.81 AORTOCORONARY BYPASS 07/05/2016 ÁNGELA LUNDY MD Ot V58.61 ANTICOAGULANTS,LT,CURRENT USE 07/05/2016 ÁNGELA LUNDY MD Ot V58.69 OTH MED,LT,CURRENT USE 07/05/2016 ÁNGELA LUNDY MD Ot 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 07/05/2016 ÁNGELA LUNDY MD Ot 272.4 HYPERLIPIDEMIA NEC/NOS 07/05/2016 ÁNGELA LUNDY MD Ot 274.9 GOUT NOS 07/05/2016 ÁNGELA LUNDY MD Ot 280.9 IRON DEFIC ANEMIA NOS 07/05/2016 ÁNGELA LUNDY MD Ot 305.00 ALCOHOL ABUSE-UNSPEC 07/05/2016 ÁNGELA LUNDY MD Ot 401.9 HYPERTENSION NOS 07/05/2016 ÁNGELA LUNDY MD Ot 414.00 CORON ATHEROSCLER NOS TYPE VESSEL, NATIV 07/05/2016 ÁNGELA LUNDY MD Ot 427.31 ATRIAL FIBRILLATION 07/05/2016 ÁNGELA LUNDY MD Ot 491.22 OBSTRUCTIVE CHRONIC BRONCHITIS WITH ACUT 07/05/2016 ÁNGELA LUNDY MD Ot 715.90 OSTEOARTHROS NOS-UNSPEC 07/05/2016 ÁNGELA LUDNY MD Ot V15.82 HISTORY OF TOBACCO USE 07/05/2016 ÁNGELA LUNDY MD Ot V45.81 AORTOCORONARY BYPASS 07/05/2016 ÁNGELA LUNDY MD Ot V58.61 ANTICOAGULANTS,LT,CURRENT USE 07/05/2016 ÁNGELA LUNDY MD, Ot V58.69 OTH MED,LT,CURRENT USE 07/05/2016 MANUEL EARL DO Ot 280.9 IRON DEFIC ANEMIA NOS 07/05/2016 MANUEL EARL DO Ot 285.9 ANEMIA NOS 07/05/2016 MANUEL EARL DO Ot 285.9 ANEMIA NOS 07/05/2016 MANUEL EARL DO Ot 285.9 ANEMIA NOS 07/05/2016 MANUEL EARL DO Ot 511.9 PLEURAL EFFUSION NOS 07/05/2016 MANUEL EARL DO Ot 285.9 ANEMIA NOS 07/05/2016 MANUEL EARL DO Ot 285.9 ANEMIA NOS 07/05/2016 MANUEL EARL DO Ot 285.9 ANEMIA NOS 07/05/2016 Ot D64.9 ANEMIA, UNSPECIFIED 07/05/2016 MANUEL EARL DO Ot D64.9 ANEMIA, UNSPECIFIED 07/05/2016 MANUEL EARL DO Ot D64.9 ANEMIA, UNSPECIFIED 07/05/2016 ÁNGELA LUNDY MD Ot D50.9 IRON DEFICIENCY ANEMIA, UNSPECIFIED 07/05/2016 ÁNGELA LUNDY MD Ot E78.5 HYPERLIPIDEMIA, UNSPECIFIED 07/05/2016 ÁNGELA LUNDY MD Ot I10 ESSENTIAL (PRIMARY) HYPERTENSION 07/05/2016 ÁNGELA LUNDY MD Ot K90.9 INTESTINAL MALABSORPTION, UNSPECIFIED 07/05/2016 ÁNGELA LUNDY MD Ot Z79.899 OTHER [facility] (CURRENT) DRUG THERAPY 07/07/2016 MANUEL EARL DO Ot M47.817 SPONDYLS W/O MYELOPATHY OR RADICULOPATHY 07/07/2016 MANUEL EARL DO Ot M81.0 AGE-RELATED OSTEOPOROSIS W/O CURRENT PAT 07/07/2016 MANUEL EARL DO Ot M47.817 SPONDYLS W/O MYELOPATHY OR RADICULOPATHY 07/07/2016 MANUEL EARL DO Ot M81.0 AGE-RELATED OSTEOPOROSIS W/O CURRENT PAT 07/26/2016 MANUEL EARL DO Ot M47.817 SPONDYLS W/O MYELOPATHY OR RADICULOPATHY 07/26/2016 MANUEL EARL DO Ot M81.0 AGE-RELATED OSTEOPOROSIS W/O CURRENT PAT 08/09/2016 MANUEL EARL DO Ot M47.817 SPONDYLS W/O MYELOPATHY OR RADICULOPATHY 08/09/2016 MANUEL EARL DO Ot M81.0 AGE-RELATED OSTEOPOROSIS W/O CURRENT PAT 08/23/2016 ÁNGELA LUNDY MD Ot D50.0 IRON DEFICIENCY ANEMIA SECONDARY TO BLOO 08/23/2016 ÁNGELA LUNDY MD Ot Z79.01 PREFLIGHT MECHANIC (CURRENT) USE OF ANTICOAGULANT 08/24/2016 ÁNGELA LUNDY MD, Ot D50.0 IRON DEFICIENCY ANEMIA SECONDARY TO BLOO 08/24/2016 ÁNGELA LUNDY MD Ot Z79.01 [facility] (CURRENT) USE OF ANTICOAGULANT 08/30/2016 ÁNGELA LUNDY MD, Ot D50.9 IRON DEFICIENCY ANEMIA, UNSPECIFIED 08/30/2016 ÁNGELA LUNDY MD Ot E78.5 HYPERLIPIDEMIA, UNSPECIFIED 08/30/2016 ÁNGELA LUNDY MD Ot I10 ESSENTIAL (PRIMARY) HYPERTENSION 08/30/2016 ÁNGELA LUNDY MD Ot K90.9 INTESTINAL MALABSORPTION, UNSPECIFIED 08/30/2016 ÁNGELA LUNDY MD, Ot Z79.899 OTHER [facility] (CURRENT) DRUG THERAPY 09/27/2016 ÁNGELA LUNDY MD, Ot D50.9 IRON DEFICIENCY ANEMIA, UNSPECIFIED 09/27/2016 ÁNGELA LUNDY MD, Ot E78.5 HYPERLIPIDEMIA, UNSPECIFIED 09/27/2016 ÁNGELA LUNDY MD Ot I10 ESSENTIAL (PRIMARY) HYPERTENSION 09/27/2016 ÁNGELA LUNDY MD, Ot K90.9 INTESTINAL MALABSORPTION, UNSPECIFIED 09/27/2016 ÁNGELA LUNDY MD, Ot Z79.899 OTHER PREFLIGHT MECHANIC (CURRENT) DRUG THERAPY 11/18/2016 NÁGELA LUNDY MD Ot D50.9 IRON DEFICIENCY ANEMIA, UNSPECIFIED 11/18/2016 ÁNGELA LUNDY MD Ot E78.5 HYPERLIPIDEMIA, UNSPECIFIED 11/18/2016 ÁNGELA LUNDY MD Ot I10 ESSENTIAL (PRIMARY) HYPERTENSION 11/18/2016 ÁNGELA LUNDY MD Ot K90.9 INTESTINAL MALABSORPTION, UNSPECIFIED 11/18/2016 ÁNGELA LUNDY MD Ot Z79.899 OTHER PREFLIGHT MECHANIC (CURRENT) DRUG THERAPY 11/20/2016 ÁNGELA LUNDY MD Ot D50.9 IRON DEFICIENCY ANEMIA, UNSPECIFIED 11/20/2016 ÁNGELA LUNDY MD Ot E78.5 HYPERLIPIDEMIA, UNSPECIFIED 11/20/2016 ÁNGELA LUNDY MD Ot I10 ESSENTIAL (PRIMARY) HYPERTENSION 11/20/2016 ÁNGELA LUNDY MD Ot K90.9 INTESTINAL MALABSORPTION, UNSPECIFIED 11/20/2016 ÁNGELA LUNDY MD Ot Z79.01 [facility] (CURRENT) USE OF ANTICOAGULANT 11/20/2016 ÁNGELA LUNDY MD Ot Z79.899 OTHER [facility] (CURRENT) DRUG THERAPY 11/21/2016 ÁNGELA LUNDY MD, Ot D50.9 IRON DEFICIENCY ANEMIA, UNSPECIFIED 11/21/2016 ÁNGELA LUNDY MD Ot E78.5 HYPERLIPIDEMIA, UNSPECIFIED 11/21/2016 ÁNGELA LUNDY MD Ot I10 ESSENTIAL (PRIMARY) HYPERTENSION 11/21/2016 ÁNGELA LUNDY MD, Ot K90.9 INTESTINAL MALABSORPTION, UNSPECIFIED 11/21/2016 ÁNGELA LUNDY MD Ot Z79.01 [facility] (CURRENT) USE OF ANTICOAGULANT 11/21/2016 ÁNGELA LUNDY MD Ot Z79.899 OTHER PREFLIGHT MECHANIC (CURRENT) DRUG THERAPY 11/24/2016 ÁNGELA LUNDY MD, Ot D50.9 IRON DEFICIENCY ANEMIA, UNSPECIFIED 11/24/2016 ÁNGELA LUNDY MD Ot E78.5 HYPERLIPIDEMIA, UNSPECIFIED 11/24/2016 ÁNGELA LUNDY MD Ot I10 ESSENTIAL (PRIMARY) HYPERTENSION 11/24/2016 ÁNGELA LUNDY MD Ot K90.9 INTESTINAL MALABSORPTION, UNSPECIFIED 11/24/2016 ÁNGELA LUNDY MD Ot Z79.899 OTHER [facility] (CURRENT) DRUG THERAPY 11/26/2016 ÁNGELA LUNDY MD, Ot D50.9 IRON DEFICIENCY ANEMIA, UNSPECIFIED 11/26/2016 ÁNGELA LUNDY MD Ot E78.5 HYPERLIPIDEMIA, UNSPECIFIED 11/26/2016 ÁNGELA LUNDY MD Ot I10 ESSENTIAL (PRIMARY) HYPERTENSION 11/26/2016 ÁNGELA LUNDY MD, Ot K90.9 INTESTINAL MALABSORPTION, UNSPECIFIED 11/26/2016 ÁNGELA LUNDY MD Ot Z79.01 [facility] (CURRENT) USE OF ANTICOAGULANT 11/26/2016 ÁNGELA LUNDY MD Ot Z79.899 OTHER [facility] (CURRENT) DRUG THERAPY 01/20/2017 ÁNGELA LUNDY MD, Ot D50.9 IRON DEFICIENCY ANEMIA, UNSPECIFIED 01/20/2017 ÁNGELA LUNDY MD Ot E78.5 HYPERLIPIDEMIA, UNSPECIFIED 01/20/2017 ÁNGELA LUNDY MD Ot I10 ESSENTIAL (PRIMARY) HYPERTENSION 01/20/2017 ÁNGELA LUNDY MD Ot K90.9 INTESTINAL MALABSORPTION, UNSPECIFIED 01/20/2017 ÁNGELA LUNDY MD, Ot Z79.899 OTHER PREFLIGHT MECHANIC (CURRENT) DRUG THERAPY 02/21/2017 ÁNGELA LUNDY MD, Ot D50.9 IRON DEFICIENCY ANEMIA, UNSPECIFIED 02/21/2017 ÁNGELA LUNDY MD, Ot E78.5 HYPERLIPIDEMIA, UNSPECIFIED 02/21/2017 ÁNGELA LUNDY MD Ot I10 ESSENTIAL (PRIMARY) HYPERTENSION 02/21/2017 ÁNGELA LUNDY MD, Ot K90.9 INTESTINAL MALABSORPTION, UNSPECIFIED 02/21/2017 ÁNGELA LUNDY MD, Ot Z79.899 OTHER PREFLIGHT MECHANIC (CURRENT) DRUG THERAPY 04/05/2017 ÁNGELA LUNDY MD, Ot D50.9 IRON DEFICIENCY ANEMIA, UNSPECIFIED 04/05/2017 ÁNGELA LUNDY MD, Ot E78.5 HYPERLIPIDEMIA, UNSPECIFIED 04/05/2017 ÁNGELA LUNDY MD Ot I10 ESSENTIAL (PRIMARY) HYPERTENSION 04/05/2017 ÁNGELA LUNDY MD, Ot K90.9 INTESTINAL MALABSORPTION, UNSPECIFIED 04/05/2017 ÁNGELA LUNDY MD Ot Z79.01 [facility] (CURRENT) USE OF ANTICOAGULANT 04/05/2017 ÁNGELA LUNDY MD Ot Z79.899 OTHER PREFLIGHT MECHANIC (CURRENT) DRUG THERAPY 05/22/2017 ÁNGELA LUNDY MD, Ot D50.9 IRON DEFICIENCY ANEMIA, UNSPECIFIED 05/22/2017 ÁNGELA LUNDY MD Ot E78.5 HYPERLIPIDEMIA, UNSPECIFIED 05/22/2017 ÁNGELA LUNDY MD Ot I10 ESSENTIAL (PRIMARY) HYPERTENSION 05/22/2017 ÁNGELA LUNDY MD, Ot K90.9 INTESTINAL MALABSORPTION, UNSPECIFIED 05/22/2017 ÁNGELA LUNDY MD Ot Z79.01 [facility] (CURRENT) USE OF ANTICOAGULANT 05/22/2017 ÁNGELA LUNDY MD Ot Z79.899 OTHER PREFLIGHT MECHANIC (CURRENT) DRUG THERAPY 06/09/2017 ÁNGELA LUNDY MD, Ot D50.9 IRON DEFICIENCY ANEMIA, UNSPECIFIED 06/09/2017 ÁNGELA LUNDY MD Ot E78.5 HYPERLIPIDEMIA, UNSPECIFIED 06/09/2017 ÁNGELA LUNDY MD Ot I10 ESSENTIAL (PRIMARY) HYPERTENSION 06/09/2017 ÁNGELA LUNDY MD, Ot K90.9 INTESTINAL MALABSORPTION, UNSPECIFIED 06/09/2017 ÁNGELA LUNDY MD Ot Z79.01 [facility] (CURRENT) USE OF ANTICOAGULANT 06/09/2017 ÁNGELA LUNDY MD Ot Z79.899 OTHER PREFLIGHT MECHANIC (CURRENT) DRUG THERAPY 06/24/2017 ÁNGELA LUNDY MD, Ot D50.9 IRON DEFICIENCY ANEMIA, UNSPECIFIED 06/24/2017 ÁNGELA LUNDY MD, Ot E78.5 HYPERLIPIDEMIA, UNSPECIFIED 06/24/2017 ÁNGELA LUNDY MD, Ot I10 ESSENTIAL (PRIMARY) HYPERTENSION 06/24/2017 ÁNGELA LUNDY MD, Ot K90.9 INTESTINAL MALABSORPTION, UNSPECIFIED 06/24/2017 ÁNGELA LUNDY MD, Ot Z79.01 PREFLIGHT MECHANIC (CURRENT) USE OF ANTICOAGULANT 06/24/2017 ÁNGELA LUNDY MD Ot Z79.899 OTHER [facility] (CURRENT) DRUG THERAPY 06/30/2017 ÁNGELA LUNDY MD, Ot D50.9 IRON DEFICIENCY ANEMIA, UNSPECIFIED 06/30/2017 ÁNGELA LUNDY MD, Ot E78.5 HYPERLIPIDEMIA, UNSPECIFIED 06/30/2017 ÁNGELA LUNDY MD Ot I10 ESSENTIAL (PRIMARY) HYPERTENSION 06/30/2017 ÁNGELA LUNDY MD, Ot K90.9 INTESTINAL MALABSORPTION, UNSPECIFIED 06/30/2017 ÁNGELA LUNDY MD, Ot Z79.01 [facility] (CURRENT) USE OF ANTICOAGULANT 06/30/2017 ÁNGELA LUNDY MD Ot Z79.899 OTHER [facility] (CURRENT) DRUG THERAPY 07/21/2017 VARSHA HERNANDEZ MD, Ot D50.9 IRON DEFICIENCY ANEMIA, UNSPECIFIED 07/21/2017 VARHSA HERNANDEZ MD, Ot E78.5 HYPERLIPIDEMIA, UNSPECIFIED 07/21/2017 VARSHA HERNANDEZ MD, Ot I10 ESSENTIAL (PRIMARY) HYPERTENSION 07/21/2017 VARSHA HERNANDEZ MD, Ot K90.9 INTESTINAL MALABSORPTION, UNSPECIFIED 07/21/2017 VARSHA HERNANDEZ MD, Ot Z79.01 [facility] (CURRENT) USE OF ANTICOAGULANT 07/21/2017 VARSHA HERNANDEZ MD Ot Z79.899 OTHER [facility] (CURRENT) DRUG THERAPY 08/18/2017 VARSHA HERNANDEZ MD Ot D50.9 IRON DEFICIENCY ANEMIA, UNSPECIFIED 08/18/2017 VARSHA HERNANDEZ MD Ot E78.5 HYPERLIPIDEMIA, UNSPECIFIED 08/18/2017 VARSHA HERNANDEZ MD Ot I10 ESSENTIAL (PRIMARY) HYPERTENSION 08/18/2017 VARSHA HERNANDEZ MD Ot K90.9 INTESTINAL MALABSORPTION, UNSPECIFIED 08/18/2017 VARSHA HERNANDEZ MD Ot Z79.01 [facility] (CURRENT) USE OF ANTICOAGULANT 08/18/2017 VARSHA HERNANDEZ MD Ot Z79.899 OTHER [facility] (CURRENT) DRUG THERAPY 09/11/2017 VARSHA HERNANDEZ MD, Ot D50.9 IRON DEFICIENCY ANEMIA, UNSPECIFIED 09/11/2017 VARSHA HERNANDEZ MD Ot E78.5 HYPERLIPIDEMIA, UNSPECIFIED 09/11/2017 VARSHA HERNANDEZ MD Ot I10 ESSENTIAL (PRIMARY) HYPERTENSION 09/11/2017 VARSHA HERNANDEZ MD Ot K90.9 INTESTINAL MALABSORPTION, UNSPECIFIED 09/11/2017 VARSHA HERNANDEZ MD Ot Z79.01 PREFLIGHT MECHANIC (CURRENT) USE OF ANTICOAGULANT 09/11/2017 VARSHA HERNANDEZ MD Ot Z79.899 OTHER PREFLIGHT MECHANIC (CURRENT) DRUG THERAPY 10/18/2017 VARSHA HERNANDEZ MD, Ot D50.9 IRON DEFICIENCY ANEMIA, UNSPECIFIED 10/18/2017 VARSHA HERNANDEZ MD Ot E78.5 HYPERLIPIDEMIA, UNSPECIFIED 10/18/2017 VARSHA HERNANDEZ MD Ot I10 ESSENTIAL (PRIMARY) HYPERTENSION 10/18/2017 VARSHA HERNANDEZ MD Ot K90.9 INTESTINAL MALABSORPTION, UNSPECIFIED 10/18/2017 VARSHA HERNANDEZ MD Ot Z79.01 [facility] (CURRENT) USE OF ANTICOAGULANT 10/18/2017 VARSHA HERNANDEZ MD Ot Z79.899 OTHER PREFLIGHT MECHANIC (CURRENT) DRUG THERAPY 10/19/2017 VARSHA HERNANDEZ MD Ot D50.9 IRON DEFICIENCY ANEMIA, UNSPECIFIED 10/19/2017 VARSHA HERNANDEZ MD Ot E78.5 HYPERLIPIDEMIA, UNSPECIFIED 10/19/2017 VARSHA HERNANDEZ MD Ot I10 ESSENTIAL (PRIMARY) HYPERTENSION 10/19/2017 VARSHA HERNANDEZ MD Ot K90.9 INTESTINAL MALABSORPTION, UNSPECIFIED 10/19/2017 VARSHA HERNANDEZ MD Ot Z79.01 [facility] (CURRENT) USE OF ANTICOAGULANT 10/19/2017 VARSHA HERNANDEZ MD Ot Z79.899 OTHER PREFLIGHT MECHANIC (CURRENT) DRUG THERAPY 11/17/2017 VARSHA HERNANDEZ MD Ot D50.9 IRON DEFICIENCY ANEMIA, UNSPECIFIED 11/17/2017 VARSHA HERNANDEZ MD Ot E78.5 HYPERLIPIDEMIA, UNSPECIFIED 11/17/2017 VARSHA HERNANDEZ MD Ot I10 ESSENTIAL (PRIMARY) HYPERTENSION 11/17/2017 VARSHA HERNANDEZ MD Ot K90.9 INTESTINAL MALABSORPTION, UNSPECIFIED 11/17/2017 VARSHA HERNANDEZ MD Ot Z79.01 [facility] (CURRENT) USE OF ANTICOAGULANT 11/17/2017 VARSHA HERNANDEZ MD Ot Z79.899 OTHER [facility] (CURRENT) DRUG THERAPY 12/08/2017 VARSHA HERNANDEZ MD Ot D50.9 IRON DEFICIENCY ANEMIA, UNSPECIFIED 12/08/2017 VARSHA HERNANDEZ MD Ot E78.5 HYPERLIPIDEMIA, UNSPECIFIED 12/08/2017 VARSHA HERNANDEZ MD Ot I10 ESSENTIAL (PRIMARY) HYPERTENSION 12/08/2017 VARSHA HERNANDEZ MD Ot K90.9 INTESTINAL MALABSORPTION, UNSPECIFIED 12/08/2017 VARSHA HERNANDEZ MD Ot Z79.01 PREFLIGHT MECHANIC (CURRENT) USE OF ANTICOAGULANT 12/08/2017 VARSHA HERNANDEZ MD Ot Z79.899 OTHER [facility] (CURRENT) DRUG THERAPY 01/23/2018 VARSHA HERNANDEZ MD, Ot D50.9 IRON DEFICIENCY ANEMIA, UNSPECIFIED 01/23/2018 VARSHA HERNANDEZ MD Ot E78.5 HYPERLIPIDEMIA, UNSPECIFIED 01/23/2018 VARSHA HERNANDEZ MD Ot I10 ESSENTIAL (PRIMARY) HYPERTENSION 01/23/2018 VARSHA HERNANDEZ MD Ot K90.9 INTESTINAL MALABSORPTION, UNSPECIFIED 01/23/2018 VARSHA HERNANDEZ MD Ot Z79.01 [facility] (CURRENT) USE OF ANTICOAGULANT 01/23/2018 VARSHA HERNANDEZ MD Ot Z79.899 OTHER PREFLIGHT MECHANIC (CURRENT) DRUG THERAPY 01/24/2018 VARSHA HERNANDEZ MD Ot D50.9 IRON DEFICIENCY ANEMIA, UNSPECIFIED 01/24/2018 VARSHA HERNANDEZ MD Ot E78.5 HYPERLIPIDEMIA, UNSPECIFIED 01/24/2018 VARSHA HERNANDEZ MD Ot I10 ESSENTIAL (PRIMARY) HYPERTENSION 01/24/2018 VARSHA HERNANDEZ MD Ot K90.9 INTESTINAL MALABSORPTION, UNSPECIFIED 01/24/2018 VARSHA HERNANDEZ MD Ot Z79.01 PREFLIGHT MECHANIC (CURRENT) USE OF ANTICOAGULANT 01/24/2018 VARSHA HERNANDEZ MD Ot Z79.899 OTHER PREFLIGHT MECHANIC (CURRENT) DRUG THERAPY 02/05/2018 EARL DO, MANUEL Pardo Ot 285.9 ANEMIA NOS 02/05/2018 EARL DO, MANUEL J Ot 285.9 ANEMIA NOS 02/05/2018 Ot D64.9 ANEMIA, UNSPECIFIED 02/05/2018 EARL DO, MANUEL Pardo Ot D64.9 ANEMIA, UNSPECIFIED 02/05/2018 EARL DO, MANUEL Pardo Ot D64.9 ANEMIA, UNSPECIFIED 02/05/2018 EARL DO, MANUEL Pardo Ot M47.817 SPONDYLS W/O MYELOPATHY OR RADICULOPATHY 02/05/2018 MANUEL EARL DO Ot M81.0 AGE-RELATED OSTEOPOROSIS W/O CURRENT PAT 02/05/2018 VARSHA HERNANDEZ MD, Ot D50.9 IRON DEFICIENCY ANEMIA, UNSPECIFIED 02/05/2018 VARSHA HERNANDEZ MD, Ot E78.5 HYPERLIPIDEMIA, UNSPECIFIED 02/05/2018 VARSHA HERNANDEZ MD, Ot I10 ESSENTIAL (PRIMARY) HYPERTENSION 02/05/2018 VARSHA HERNANDEZ MD, Ot K90.9 INTESTINAL MALABSORPTION, UNSPECIFIED 02/05/2018 VARSHA HERNANDEZ MD Ot Z79.01 [facility] (CURRENT) USE OF ANTICOAGULANT 02/05/2018 VARSHA HERNANDEZ MD, Ot Z79.899 OTHER [facility] (CURRENT) DRUG THERAPY 02/06/2018 VARSHA HERNANDEZ MD, Ot D50.9 IRON DEFICIENCY ANEMIA, UNSPECIFIED 02/06/2018 VARSHA HERNANDEZ MD, Ot E78.5 HYPERLIPIDEMIA, UNSPECIFIED 02/06/2018 VARSHA HERNANDEZ MD, Ot I10 ESSENTIAL (PRIMARY) HYPERTENSION 02/06/2018 VARSHA HERNANDEZ MD, Ot K90.9 INTESTINAL MALABSORPTION, UNSPECIFIED 02/06/2018 VARSHA HERNANDEZ MD Ot Z79.01 [facility] (CURRENT) USE OF ANTICOAGULANT 02/06/2018 VARSHA HERNANDEZ MD Ot Z79.899 OTHER [facility] (CURRENT) DRUG THERAPY 03/16/2018 VARSHA HERNANDEZ MD, Ot D50.9 IRON DEFICIENCY ANEMIA, UNSPECIFIED 03/16/2018 VARSHA HERNANDEZ MD Ot E78.5 HYPERLIPIDEMIA, UNSPECIFIED 03/16/2018 VARSHA HERNANDEZ MD Ot I10 ESSENTIAL (PRIMARY) HYPERTENSION 03/16/2018 VARSHA HERNANDEZ MD, Ot K90.9 INTESTINAL MALABSORPTION, UNSPECIFIED 03/16/2018 VARSHA HERNANDEZ MD Ot Z79.01 PREFLIGHT MECHANIC (CURRENT) USE OF ANTICOAGULANT 03/16/2018 VARSHA HERNANDEZ MD Ot Z79.899 OTHER PREFLIGHT MECHANIC (CURRENT) DRUG THERAPY 04/05/2018 VARSHA HERNANDEZ MD Ot D50.9 IRON DEFICIENCY ANEMIA, UNSPECIFIED 04/05/2018 VARSHA HERNANDEZ MD Ot E78.5 HYPERLIPIDEMIA, UNSPECIFIED 04/05/2018 VARSHA HERNANDEZ MD Ot I10 ESSENTIAL (PRIMARY) HYPERTENSION 04/05/2018 VARSHA HERNANDEZ MD Ot K90.9 INTESTINAL MALABSORPTION, UNSPECIFIED 04/05/2018 VARSHA HERNANDEZ MD Ot Z79.01 [facility] (CURRENT) USE OF ANTICOAGULANT 04/05/2018 VARSHA HERNANDEZ MD Ot Z79.899 OTHER [facility] (CURRENT) DRUG THERAPY 05/25/2018 VARSHA HERNANDEZ MD Ot D50.9 IRON DEFICIENCY ANEMIA, UNSPECIFIED 05/25/2018 VARSHA HERNANDEZ MD Ot E78.5 HYPERLIPIDEMIA, UNSPECIFIED 05/25/2018 VARSHA HERNANDEZ MD Ot I10 ESSENTIAL (PRIMARY) HYPERTENSION 05/25/2018 VARSHA HERNANDEZ MD Ot K90.9 INTESTINAL MALABSORPTION, UNSPECIFIED 05/25/2018 VARSHA HERNANDEZ MD Ot Z79.01 PREFLIGHT MECHANIC (CURRENT) USE OF ANTICOAGULANT 05/25/2018 VARSHA HERNANDEZ MD Ot Z79.899 OTHER PREFLIGHT MECHANIC (CURRENT) DRUG THERAPY 06/25/2018 VARSHA HERNANDEZ MD Ot D50.9 IRON DEFICIENCY ANEMIA, UNSPECIFIED 06/25/2018 VARSHA HERNANDEZ MD Ot E78.5 HYPERLIPIDEMIA, UNSPECIFIED 06/25/2018 VARSHA HERNANDEZ MD Ot I10 ESSENTIAL (PRIMARY) HYPERTENSION 06/25/2018 VARSHA HERNANDEZ MD Ot K90.9 INTESTINAL MALABSORPTION, UNSPECIFIED 06/25/2018 VARSHA HERNANDEZ MD Ot Z79.01 [facility] (CURRENT) USE OF ANTICOAGULANT 06/25/2018 VARSHA HERNANDEZ MD Ot Z79.899 OTHER [facility] (CURRENT) DRUG THERAPY 06/26/2018 VARSHA HERNANDEZ MD Ot D50.9 IRON DEFICIENCY ANEMIA, UNSPECIFIED 06/26/2018 VARSHA HERNANDEZ MD Ot E78.5 HYPERLIPIDEMIA, UNSPECIFIED 06/26/2018 VARSHA HERNANDEZ MD Ot I10 ESSENTIAL (PRIMARY) HYPERTENSION 06/26/2018 VARSHA HERNANDEZ MD Ot K90.9 INTESTINAL MALABSORPTION, UNSPECIFIED 06/26/2018 VARSHA HERNANDEZ MD Ot Z79.01 [facility] (CURRENT) USE OF ANTICOAGULANT 06/26/2018 VARSHA HERNANDEZ MD Ot Z79.899 OTHER [facility] (CURRENT) DRUG THERAPY 09/21/2018 VARSHA HERNANDEZ MD Ot D50.9 IRON DEFICIENCY ANEMIA, UNSPECIFIED 09/21/2018 VARSHA HERNANDEZ MD Ot E78.5 HYPERLIPIDEMIA, UNSPECIFIED 09/21/2018 VARSHA HERNANDEZ MD Ot I10 ESSENTIAL (PRIMARY) HYPERTENSION 09/21/2018 VARSHA HERNANDEZ MD Ot K90.9 INTESTINAL MALABSORPTION, UNSPECIFIED 09/21/2018 VARSHA HERNANDEZ MD Ot Z79.01 [employer] (CURRENT) USE OF ANTICOAGULANT 09/21/2018 VARSHA HERNANDEZ MD Ot Z79.899 OTHER [facility] (CURRENT) DRUG THERAPY 10/04/2018 VARSHA HERNANDEZ MD Ot D50.9 IRON DEFICIENCY ANEMIA, UNSPECIFIED 10/04/2018 VARSHA HERNANDEZ MD Ot E78.5 HYPERLIPIDEMIA, UNSPECIFIED 10/04/2018 VARSHA HERNANDEZ MD Ot I10 ESSENTIAL (PRIMARY) HYPERTENSION 10/04/2018 VARSHA HERNANDEZ MD Ot K90.9 INTESTINAL MALABSORPTION, UNSPECIFIED 10/04/2018 VARSHA HERNANDEZ MD Ot Z79.01 [facility] (CURRENT) USE OF ANTICOAGULANT 10/04/2018 VARSHA HERNANDEZ MD Ot Z79.899 OTHER [employer] (CURRENT) DRUG THERAPY 10/28/2018 VARSHA HERNANDEZ MD Ot D50.9 IRON DEFICIENCY ANEMIA, UNSPECIFIED 10/28/2018 VARSHA HERNANDEZ MD Ot E78.5 HYPERLIPIDEMIA, UNSPECIFIED 10/28/2018 VARSHA HERNANDEZ MD Ot I10 ESSENTIAL (PRIMARY) HYPERTENSION 10/28/2018 VARSHA HERNANDEZ MD Ot K90.9 INTESTINAL MALABSORPTION, UNSPECIFIED 10/28/2018 VARSHA HERNANDEZ MD Ot Z79.01 [facility] (CURRENT) USE OF ANTICOAGULANT 10/28/2018 VARSHA HERNANDEZ MD Ot Z79.899 OTHER [employer] (CURRENT) DRUG THERAPY 10/30/2018 VARSHA HERNANDEZ MD Ot D50.9 IRON DEFICIENCY ANEMIA, UNSPECIFIED 10/30/2018 VARSHA HERNANDEZ MD Ot E78.5 HYPERLIPIDEMIA, UNSPECIFIED 10/30/2018 VARSHA HERNANDEZ MD Ot I10 ESSENTIAL (PRIMARY) HYPERTENSION 10/30/2018 VARSHA HERNANDEZ MD, Ot K90.9 INTESTINAL MALABSORPTION, UNSPECIFIED 10/30/2018 VARSHA HERNANDEZ MD Ot Z79.01 [employer] (CURRENT) USE OF ANTICOAGULANT 10/30/2018 VARSHA HERNANDEZ MD Ot Z79.899 OTHER [employer] (CURRENT) DRUG THERAPY 10/30/2018 VARSHA HERNANDEZ MD, Ot D50.9 IRON DEFICIENCY ANEMIA, UNSPECIFIED 10/30/2018 VARSHA HERNANDEZ MD, Ot E78.5 HYPERLIPIDEMIA, UNSPECIFIED 10/30/2018 VARSHA HERNANDEZ MD Ot I10 ESSENTIAL (PRIMARY) HYPERTENSION 10/30/2018 VARSHA HERNANDEZ MD, Ot K90.9 INTESTINAL MALABSORPTION, UNSPECIFIED 10/30/2018 VARSHA HERNANDEZ MD, Ot Z79.01 [facility] (CURRENT) USE OF ANTICOAGULANT 10/30/2018 VARSHA HERNANDEZ MD, Ot Z79.899 OTHER [employer] (CURRENT) DRUG THERAPY Procedures Code Description Performed By Performed On 96.04 01/31/2015 Results Test Result Range Complete blood count (CBC) with automated white blood cell (WBC) differential - 08/23/16 08:15 Blood leukocytes automated count (number/volume) 4.9 10*3/uL 4.3-11.0 Blood erythrocytes automated count (number/volume) 2.71 10*6/uL 4.35-5.85 Venous blood hemoglobin measurement (mass/volume) 6.9 g/dL 13.3-17.7 Blood hematocrit (volume fraction) 22 % 40-54 Automated erythrocyte mean corpuscular volume 82 [foz_us] 80-99 Automated erythrocyte mean corpuscular hemoglobin (mass per erythrocyte) 25 pg 25-34 Automated erythrocyte mean corpuscular hemoglobin concentration measurement ( mass/volume) 31 g/dL 32-36 Automated erythrocyte distribution width ratio 15.2 % 10.0-14.5 Automated blood platelet count (count/volume) 520 10*3/uL 130-400 Automated blood platelet mean volume measurement 9.2 [foz_us] 7.4-10.4 Automated blood neutrophils/100 leukocytes 69 % 42-75 Automated blood lymphocytes/100 leukocytes 13 % 12-44 Blood monocytes/100 leukocytes 13 % 0-12 Automated blood eosinophils/100 leukocytes 5 % 0-10 Automated blood basophils/100 leukocytes 0 % 0-10 Blood neutrophils automated count (number/volume) 3.4 10*3 1.8-7.8 Blood lymphocytes automated count (number/volume) 0.6 10*3 1.0-4.0 Blood monocytes automated count (number/volume) 0.6 10*3 0.0-1.0 Automated eosinophil count 0.2 10*3/uL 0.0-0.3 Automated blood basophil count (count/volume) 0.0 10*3/uL 0.0-0.1 RED CELLS LEUKO REDUCED AS1 - 08/23/16 08:15 RED CELLS LEUKO REDUCED AS1 TRANSFUSED 08/23/16 1214 NRG Blood type T Indirect antibody screen panel - 08/23/16 08:15 ABO+Rh group AP NRG Transfusion band number [id number] NRG Blood group antibody screen NEGATIVE NRG Encounters ACCT No. Visit Date/Time Discharge Status Pt. Type Provider Facility Loc./Unit Complaint [id number] 11/09/2018 05:47:00 11/09/2018 13:28:00 DIS Outpatient JOLANTA MCLEAN DO [facility] PREOP COLONOSCOPY/EGD [id number] 11/07/2018 13:47:00 11/07/2018 23:59:59 CLS Outpatient VARSHA HERNANDEZ MD [facility] ONC [id number] 08/08/2018 14:26:00 10/28/2018 00:01:00 DIS Outpatient VARSHA HERNANDEZ MD [facility] ONC [id number] 05/16/2018 12:53:00 05/25/2018 00:01:00 DIS Outpatient VARSHA HERNANDEZ MD [facility] ONC [id number] 02/07/2018 12:42:00 02/07/2018 23:59:59 CLS Outpatient VARSHA HERNANDEZ MD [facility] ONC [id number] 12/13/2017 13:08:00 01/23/2018 00:01:00 DIS Outpatient VARSHA HERNANDEZ MD [facility] ONC [id number] 10/18/2017 12:39:00 10/18/2017 00:01:00 DIS Outpatient VARSHA HERNANDEZ MD [facility] ONC [id number] 04/13/2017 13:14:00 06/24/2017 00:01:00 DIS Outpatient ÁNGELA LUNDY MD [facility] ONC [id number] 01/05/2017 13:07:00 02/21/2017 00:01:00 DIS Outpatient ÁNGELA LUNDY MD [facility] ONC [id number] 11/16/2016 12:30:00 11/20/2016 00:01:00 DIS Outpatient ÁNGELA LUNDY MD [facility] ONC [id number] 08/23/2016 07:44:00 08/23/2016 15:05:00 DIS Outpatient ÁNGELA LUNDY MD [facility] ANEMIA [id number] 07/05/2016 11:50:00 07/05/2016 23:59:59 CLS Outpatient MANUEL EARL DO [facility] RAD LOW BACK PAIN [id number] 06/14/2016 00:09:00 06/14/2016 23:59:59 CLS Preadmit ÁNGELA LUNDY MD Via [facility] ONC [id number] 05/25/2016 13:12:00 06/13/2016 00:01:00 DIS Outpatient ÁNGELA LUNDY MD [facility] ONC [id number] 12/17/2015 09:43:00 12/17/2015 23:59:59 CLS Outpatient ÁNGELA LUNDY MD Via [facility] ONC [id number] 12/02/2015 07:38:00 12/02/2015 12:10:00 DIS Outpatient MANUEL EARL DO Via [facility] SDC ANEMIA [id number] 10/21/2015 07:52:00 10/21/2015 23:59:59 CLS Outpatient MANUEL EARL DO Via [facility] SDC ANEMIA [id number] 08/31/2015 07:46:00 08/31/2015 23:59:59 SETH Outpatient MANUEL EARL DO Via [facility] SDC ANEMIA [id number] 06/16/2015 08:27:00 06/16/2015 23:59:59 [facility] [id number] 04/21/2015 08:37:00 04/21/2015 23:59:59 CLS Outpatient MANUEL EARL DO Via [facility] SDC ANEMIA [id number] 04/10/2015 00:10:00 04/10/2015 23:59:59 CLS Preadmit MANUEL EARL DO Via [facility] SDC ANEMIA [id number] 01/09/2015 11:14:00 04/09/2015 00:01:00 DIS Outpatient MANUEL EARL DO Via [facility] SDC ANEMIA [id number] 03/04/2015 13:43:00 03/04/2015 23:59:59 CLS Outpatient EARL MANUEL [facility] RAD PLEURAL EFFUSION FOLLOW UP [id number] 03/02/2015 08:45:00 03/02/2015 23:59:59 CLS Outpatient MANUEL EARL DO Via [facility] ANEMIA [id number] 01/28/2015 17:30:00 01/31/2015 17:30:00 DIS Inpatient MANUEL EARL DO Via [facility] ICU PNEUMONIA BIBASILAR; UTI [id number] 12/16/2014 08:45:00 12/16/2014 23:59:59 CLS Outpatient MANUEL EARL DO [facility] ANEMIA [id number] 08/31/2014 12:34:00 08/31/2014 23:59:59 CLS Outpatient MADY MANUEL [facility] ANEMIA [id number] 05/19/2014 08:13:00 05/19/2014 23:59:59 CLS [facility] [id number] 07/10/2013 08:52:00 07/10/2013 23:59:59 CLS Outpatient ÁNGELA LUNDY MD [facility] ONC [id number] 06/12/2013 09:56:00 06/12/2013 23:59:59 CLS Outpatient ÁNGELA LUNDY MD [facility] ONC [id number] 02/06/2013 10:30:00 02/06/2013 23:59:59 CLS Outpatient NIKKIE GARCIA, ÁNGELA Sheldon [facility] ONC [id number] 11/12/2018 14:00:00 PEN Preadmit JOLANTA MCLEAN DO [facility] ENDO LOW IRON [id number] 08/13/2015 15:14:00 Document Registration [id number] 11/06/2012 13:05:00 Document Registration [id number] 11/03/2012 14:38:00 Document Registration [id number] 09/11/2012 09:21:00 Document Registration [id number] 05/15/2012 09:18:00 Document Registration [id number] 11/15/2011 08:53:00 Document Registration [id number] 05/17/2011 09:26:00 Document Registration [id number] 02/15/2011 09:03:00 Document Registration [id number] 12/21/2010 08:02:00 Document Registration [id number] 12/10/2010 12:21:00 Document Registration [id number] 07/27/2010 15:20:00 Document Registration [id number] 01/07/2010 09:36:00 Document Registration [id number] 06/16/2015 08:28:11 ACT Document Registration
[2018-11-12] MEDS ORDERED: LACTATED RINGERS 1,000 ML IV STA (08:38)
[2018-11-12] MEDS ORDERED: HURRICAINE EXT TUBE (BENZOCAINE) XX PRN (08:45)
[2018-11-12 09:32] VITALS: BP 143/69
--- NOTE | 2018-11-12 09:33 | Progress Note-Pre Operative ---
Pre-Operative Progress Note H&P Reviewed The H&P was reviewed, patient examined and no changes noted. Time Seen by Provider: 09:28 Date H&P Reviewed: Nov 12, 2018 Time H&P Reviewed: 09:29 Pre-Operative Diagnosis: Anemia JOLANTA MCLEAN DO Nov 12, 2018 09:33
[2018-11-12] MEDS ORDERED: PROPOFOL INJECTION 50 ML IV ONE (10:11)
[2018-11-12] MEDS ORDERED: ESMOLOL 100 MG/10 ML (BREVIBLOC) VIAL ONE (10:14)
--- NOTE | 2018-11-12 10:57 | Progress Note-Post Operative ---
Post-Operative Progess Note Surgeon (s)/Concrete Form Setter (s) Surgeon JOLANTA MCLEAN DO Concrete Form Setter: none Pre-Operative Diagnosis Anemia Post-Operative Diagnosis Gastritis, ??Duodenal ulcer, Hiatal hernia, Esophageal polyps Colon Polyps, AVM, Diverticula, Internal hemorrhoids Procedure & Operative Findings Date of Procedure 11/12/18 Procedure Performed/Findings EGD with bx Colon with snare Anesthesia Type IV sedation by ASSISTED LIVING CARE MANAGER Estimated Blood Loss Estimated blood loss (mL): scant Specimens/Packing Specimens Removed Duodenal bx Antral bx Esophageal bx GE jxn bx Descending colon polyp x 2 JOLANTA MCLEAN DO Nov 12, 2018 10:57
--- NOTE | 2018-11-12 10:59 | Endoscopy Discharge Instruct ---
Endo Procedure/Findings Findings 1.: Hiatal Hernia, Duodenal Ulcer, Gastritis 2.: Polyp 3.: Vascular Ectasias 4.: Diverticulosis, Internal Hemorrhoids Discharge Instructions - Activity: You might feel a little sleepy until tomorrow. This is due to the medicine you received to relax you. Until tomorrow, you should: NOT drive a car, operate machinery or power tools. NOT drink any alcoholic beverages. NOT make any important decisions or sign importortant papers. Do not return to work until tomorrow, unless otherwise instructed. Resume previous activities tomorrow. Diet: Start by taking liquids. If you tolerate liquids, advance to solid food. make an appointment for one week Instructions: 1.: Colonscopy in 3 years 2.: EGD in 1 year Notify Physician - If you experience excessive bleeding, unusual abdominal pain, fever, or chest pain, contact your doctor immediately. Follow-Up: - I have received and understand the above instructions and will call my doctor if I have any further questions. Patient Signature Date Nurse Signature Other (Relationship) JOLANTA MCLEAN DO Nov 12, 2018 10:59
[2018-11-12 11:25] VITALS: BP 169/72
[2018-11-12 12:00] VITALS: BP 137/74
[2018-11-12 12:05] VITALS: BP 137/74
--- NOTE | 2018-11-12 13:38 | Anesthesia-General Post-Op ---
MAC Patient Condition Mental Status/LOC: Same as Preop Cardiovascular: Satisfactory Nausea/Vomiting: Absent Respiratory: Satisfactory Pain: Controlled Complications: Absent Post Op Complications Complications None Follow Up Care/Instructions Patient Instructions None needed. Anesthesiology Discharge Order Discharge Order Patient is doing well, no complaints, stable vital signs, no apparent adverse anesthesia problems. No complications reported per nursing. KRISTY SERRA CRNA Nov 12, 2018 13:38
--- NOTE | 2018-11-12 15:14 | OPERATIVE REPORT ---
DATE OF SERVICE: PREOPERATIVE DIAGNOSIS: Anemia. POSTOPERATIVE DIAGNOSES: 1. Questionable duodenal ulcers. 2. Gastritis. 3. Hiatal hernia. 4. Colon polyps. 5. Diverticula. 6. AVMs. 7. Internal hemorrhoids. PROCEDURES: 1. EGD with biopsy. 2. Colonoscopy with snare polypectomy. SURGEON: Vignesh Tompkins DO. LABORATORY AIDE: None. ANESTHESIA: IV sedation by the INPATIENT CARE MANAGER RN. SPECIMEN: 1. One biopsy from the duodenum and one biopsy from the GE junction. 2. Two polyps from the descending colon and also biopsy from the esophagus. BLOOD LOSS: Scant. FLUIDS: Per anesthesia. POSTOPERATIVE CONDITION: Stable. INDICATION FOR PROCEDURE: The patient is an 83-year-old male, who has chronic anemia iron deficiency and needed a workup. FINDINGS: The patient had what looked like possible duodenal ulcers and possibly even an antral ulcer. He also had a sliding hiatal hernia and some esophageal polyps in the colon. He had a couple of large polyps and then he had AVMs in the ascending colon and the cecal area and then some grade II internal hemorrhoids. PROCEDURE NOTE: After informed consent was obtained, the patient was brought to the endoscopy suite, placed on the bed in the left lateral decubitus position and administered IV sedation by the INPATIENT CARE MANAGER RN who then monitored his vitals the entire time, heart rate, blood pressure, pulse ox and the scope was inserted down the mouth through the esophagus into the stomach and portion of the duodenum. In the duodenum, looked like some possible ulcers, took a picture of these, tried to flush them off the fluid, they did not flush away, so did a biopsy of one of these. I then pulled back into the antrum, saw what looked like a little bit of flecks of blood as well as possibly another ulcer, took a picture of this and then did a biopsy. I retroflexed the scope, did not really see a hernia, but when I pulled back into the GE junction, looked like he had a sliding hiatal hernia, so did a biopsy of the GE junction and then did a biopsy of what looked like a polyp in the esophagus and then pulled the scope out of the esophagus and out the mouth. Switched gloves and switched cameras, went down below and inserted the scope, noted a large polyp in the descending colon, did a snare polypectomy of this and then saw another one just a little bit above this, took this with a snare as well and then pushed all the way to the cecum and the cecum and just outside of it, saw some AVMs, took picture of these AVMs. I then took a picture of the appendiceal orifice, then slowly withdrew the scope insufflating to look circumferentially at the mistry look at the cecum, up the ascending colon to the hepatic flexure, then down the transverse colon, the splenic flexure, into the descending colon, saw some diverticula and then continued down into the rectum, retroflexed the rectal vault, saw some grade II internal hemorrhoids. I then removed the scope. The patient tolerated the procedure and recovered in the endoscopy suite. Job ID: [id number] DocumentID: [id number] Dictated Date: 11/12/2018 11:44:34 Business Center Representative Date: 11/12/2018 15:14:09 Dictated By: VIGNESH TOMPKINS DO
== END 2018-11-12 12:05 | disposition home or self-care (01) ==
LOC: ENDO 08:22
PROVIDERS: ATTEND Surgery
DX: D50.0 Iron deficiency anemia secondary to blood loss (chronic) (principal); K29.50 Unspecified chronic gastritis without bleeding; K29.80 Duodenitis without bleeding; K44.9 Diaphragmatic hernia without obstruction or gangrene; D12.3 Benign neoplasm of transverse colon; K57.30 Diverticulosis of large intestine without perforation or abscess without bleeding; K64.1 Second degree hemorrhoids; K31.811 Angiodysplasia of stomach and duodenum with bleeding; R79.1 Abnormal coagulation profile; I48.2 Chronic atrial fibrillation; I11.9 Hypertensive heart disease without heart failure; I25.10 Atherosclerotic heart disease of native coronary artery without angina pectoris; J44.9 Chronic obstructive pulmonary disease, unspecified; Z87.891 Personal history of nicotine dependence; Z95.1 Presence of aortocoronary bypass graft; Z79.01 Long term (current) use of anticoagulants; Z79.899 Other long term (current) drug therapy

== ENCOUNTER 2018-12-05 14:05 | Outpatient (RCR) | payer MEDICARE ==
[2018-10-29 10:50] LABS: BASOPHILS % (AUTO) 1 % (0-10); EOSINOPHILS # (AUTO) 0.2 10^3/uL (0.0-0.3); EOSINOPHILS % (AUTO) 4 % (0-10); HEMATOCRIT 25 % (40-54); HEMOGLOBIN 7.8 G/DL (13.3-17.7); LYMPHOCYTES # (AUTO) 0.6 X 10^3 (1.0-4.0); LYMPHOCYTES % (AUTO) 14 % (12-44); MEAN CORPUSCULAR HEMOGLOBIN 31 PG (25-34); MEAN CORPUSCULAR HGB CONC 31 G/DL (32-36); MEAN CORPUSCULAR VOLUME 98 FL (80-99); MEAN PLATELET VOLUME 9.4 FL (7.4-10.4); MONOCYTES # (AUTO) 0.5 X 10^3 (0.0-1.0); MONOCYTES % (AUTO) 13 % (0-12); NEUTROPHILS # (AUTO) 2.8 X 10^3 (1.8-7.8); NEUTROPHILS % (AUTO) 68 % (42-75); PLATELET COUNT 350 10^3/uL (130-400); RED CELL DISTRIBUTION WIDTH 14.3 % (10.0-14.5); WHITE BLOOD COUNT 4.1 10^3/uL (4.3-11.0)
[2018-10-29 11:11] LABS: ALBUMIN 3.9 GM/DL (3.2-4.5); BILIRUBIN,TOTAL 0.3 MG/DL (0.1-1.0); CALCIUM 8.2 MG/DL (8.5-10.1); CREATININE SERUM 1.26 MG/DL (0.60-1.30); TOTAL PROTEIN 6.4 GM/DL (6.4-8.2)
[2018-12-03 11:33] LABS: BASOPHILS % (AUTO) 1 % (0-10); EOSINOPHILS # (AUTO) 0.1 10^3/uL (0.0-0.3); EOSINOPHILS % (AUTO) 2 % (0-10); HEMATOCRIT 36 % (40-54); HEMOGLOBIN 11.3 G/DL (13.3-17.7); LYMPHOCYTES # (AUTO) 0.6 X 10^3 (1.0-4.0); LYMPHOCYTES % (AUTO) 16 % (12-44); MEAN CORPUSCULAR HEMOGLOBIN 31 PG (25-34); MEAN CORPUSCULAR HGB CONC 31 G/DL (32-36); MEAN CORPUSCULAR VOLUME 101 FL (80-99); MEAN PLATELET VOLUME 9.7 FL (7.4-10.4); MONOCYTES # (AUTO) 0.6 X 10^3 (0.0-1.0); MONOCYTES % (AUTO) 14 % (0-12); NEUTROPHILS # (AUTO) 2.6 X 10^3 (1.8-7.8); NEUTROPHILS % (AUTO) 67 % (42-75); PLATELET COUNT 340 10^3/uL (130-400); RED CELL DISTRIBUTION WIDTH 17.8 % (10.0-14.5); WHITE BLOOD COUNT 3.9 10^3/uL (4.3-11.0)
[2018-12-03 11:50] LABS: ALBUMIN 4.1 GM/DL (3.2-4.5); BILIRUBIN,TOTAL 0.3 MG/DL (0.1-1.0); CALCIUM 8.3 MG/DL (8.5-10.1); CREATININE SERUM 1.3 MG/DL (0.60-1.30); POTASSIUM 4.6 MMOL/L (3.6-5.0); TOTAL PROTEIN 6.9 GM/DL (6.4-8.2)
[~2018-12-05 14:05] MED LIST changes: +FERRIC CARBOXYMALTOSE (CANCER) 750 MG in NS (IVPB) CANCER CENTER 250 ML IV SCH
== END 2019-01-27 | disposition home or self-care (01) ==
LOC: ONC 14:05
PROVIDERS: ATTEND Internal Medicine Hematology & Oncology
DX: D50.9 Iron deficiency anemia, unspecified (principal); K90.9 Intestinal malabsorption, unspecified; I10 Essential (primary) hypertension; E78.5 Hyperlipidemia, unspecified; Z79.899 Other long term (current) drug therapy; Z79.01 Long term (current) use of anticoagulants
CPT/HCPCS: 36415; 80053; 82728; 83540; 85025; 96365; 99213

== ENCOUNTER 2019-05-10 13:11 | Outpatient (RCR) | payer MEDICARE ==
[2019-02-25 10:58] LABS: BASOPHILS % (AUTO) 1 % (0-10); EOSINOPHILS # (AUTO) 0.1 10^3/uL (0.0-0.3); EOSINOPHILS % (AUTO) 2 % (0-10); HEMATOCRIT 21 % (40-54); LYMPHOCYTES # (AUTO) 0.6 X 10^3 (1.0-4.0); LYMPHOCYTES % (AUTO) 13 % (12-44); MEAN CORPUSCULAR HEMOGLOBIN 23 PG (25-34); MEAN CORPUSCULAR HGB CONC 28 G/DL (32-36); MEAN CORPUSCULAR VOLUME 82 FL (80-99); MEAN PLATELET VOLUME 9.7 FL (7.4-10.4); MONOCYTES # (AUTO) 0.6 X 10^3 (0.0-1.0); MONOCYTES % (AUTO) 13 % (0-12); NEUTROPHILS # (AUTO) 3.1 X 10^3 (1.8-7.8); NEUTROPHILS % (AUTO) 71 % (42-75); PLATELET COUNT 672 10^3/uL (130-400); RED CELL DISTRIBUTION WIDTH 18.1 % (10.0-14.5); WHITE BLOOD COUNT 4.3 10^3/uL (4.3-11.0)
[2019-02-25 11:09] LABS: HEMOGLOBIN 5.8 G/DL (13.3-17.7)
[2019-02-25 11:40] LABS: ALBUMIN 3.9 GM/DL (3.2-4.5); BILIRUBIN,TOTAL 0.2 MG/DL (0.1-1.0); CALCIUM 8.2 MG/DL (8.5-10.1); CREATININE SERUM 1.42 MG/DL (0.60-1.30); POTASSIUM 4.4 MMOL/L (3.6-5.0); TOTAL PROTEIN 6.3 GM/DL (6.4-8.2)
[2019-03-08 10:13] LABS: BASOPHILS % (AUTO) 1 % (0-10); EOSINOPHILS # (AUTO) 0.1 10^3/uL (0.0-0.3); EOSINOPHILS % (AUTO) 2 % (0-10); HEMATOCRIT 32 % (40-54); HEMOGLOBIN 9.3 G/DL (13.3-17.7); LYMPHOCYTES # (AUTO) 0.5 X 10^3 (1.0-4.0); LYMPHOCYTES % (AUTO) 11 % (12-44); MEAN CORPUSCULAR HEMOGLOBIN 27 PG (25-34); MEAN CORPUSCULAR HGB CONC 29 G/DL (32-36); MEAN CORPUSCULAR VOLUME 92 FL (80-99); MEAN PLATELET VOLUME 9.7 FL (7.4-10.4); MONOCYTES # (AUTO) 0.5 X 10^3 (0.0-1.0); MONOCYTES % (AUTO) 12 % (0-12); NEUTROPHILS # (AUTO) 3.3 X 10^3 (1.8-7.8); NEUTROPHILS % (AUTO) 74 % (42-75); PLATELET COUNT 324 10^3/uL (130-400); RED CELL DISTRIBUTION WIDTH 27.3 % (10.0-14.5); WHITE BLOOD COUNT 4.4 10^3/uL (4.3-11.0)
[2019-04-29 16:30] LABS: BASOPHILS % (AUTO) 1 % (0-10); EOSINOPHILS # (AUTO) 0.1 10^3/uL (0.0-0.3); EOSINOPHILS % (AUTO) 2 % (0-10); HEMATOCRIT 31 % (40-54); HEMOGLOBIN 9.7 G/DL (13.3-17.7); LYMPHOCYTES # (AUTO) 0.6 X 10^3 (1.0-4.0); LYMPHOCYTES % (AUTO) 14 % (12-44); MEAN CORPUSCULAR HEMOGLOBIN 30 PG (25-34); MEAN CORPUSCULAR HGB CONC 31 G/DL (32-36); MEAN CORPUSCULAR VOLUME 97 FL (80-99); MONOCYTES # (AUTO) 0.4 X 10^3 (0.0-1.0); MONOCYTES % (AUTO) 10 % (0-12); NEUTROPHILS % (AUTO) 73 % (42-75); PLATELET COUNT 344 10^3/uL (130-400); RED CELL DISTRIBUTION WIDTH 16.4 % (10.0-14.5); WHITE BLOOD COUNT 4.1 10^3/uL (4.3-11.0)
[2019-04-29 16:54] LABS: FIBRIN DEGRADATION PRODUCTS 0.39 UG/ML (0.00-0.49); INR 3.2 (0.8-1.4); PROTHROMBIN TIME PATIENT 34.2 SEC (12.2-14.7)
[2019-04-29 17:10] LABS: ALBUMIN 3.9 GM/DL (3.2-4.5); BILIRUBIN,TOTAL 0.2 MG/DL (0.1-1.0); CALCIUM 8.6 MG/DL (8.5-10.1); CREATININE SERUM 1.24 MG/DL (0.60-1.30); POTASSIUM 4.5 MMOL/L (3.6-5.0); TOTAL PROTEIN 7.6 GM/DL (6.4-8.2)
[~2019-05-10 13:11] MED LIST changes: +NS (IVPB) CANCER CENTER 250 ML ONE
== END 2019-05-26 | disposition home or self-care (01) ==
LOC: ONC 13:11
PROVIDERS: ATTEND Internal Medicine Hematology & Oncology
DX: D50.9 Iron deficiency anemia, unspecified (principal); K90.9 Intestinal malabsorption, unspecified; I10 Essential (primary) hypertension; E78.5 Hyperlipidemia, unspecified; Z79.899 Other long term (current) drug therapy; Z79.01 Long term (current) use of anticoagulants
CPT/HCPCS: 36415; 36430; 80053; 82607; 82728; 82746; 83540; 85025; 85379; 85384; 85610; 85730; 86850; 86900; 86901; 86920; 96365; 99195

== ENCOUNTER 2019-09-12 14:49 | Outpatient (RCR) | payer MEDICARE ==
[2019-06-25 13:30] LABS: BASOPHILS % (AUTO) 0 % (0-10); EOSINOPHILS # (AUTO) 0.1 10^3/uL (0.0-0.3); EOSINOPHILS % (AUTO) 1 % (0-10); HEMATOCRIT 38 % (40-54); HEMOGLOBIN 12.1 G/DL (13.3-17.7); LYMPHOCYTES # (AUTO) 0.5 X 10^3 (1.0-4.0); LYMPHOCYTES % (AUTO) 7 % (12-44); MEAN CORPUSCULAR HEMOGLOBIN 32 PG (25-34); MEAN CORPUSCULAR HGB CONC 32 G/DL (32-36); MEAN CORPUSCULAR VOLUME 102 FL (80-99); MEAN PLATELET VOLUME 9.8 FL (7.4-10.4); MONOCYTES # (AUTO) 0.7 X 10^3 (0.0-1.0); MONOCYTES % (AUTO) 10 % (0-12); NEUTROPHILS # (AUTO) 5.5 X 10^3 (1.8-7.8); NEUTROPHILS % (AUTO) 82 % (42-75); PLATELET COUNT 308 10^3/uL (130-400); WHITE BLOOD COUNT 6.7 10^3/uL (4.3-11.0)
[2019-06-25 13:47] LABS: ALANINE AMINOTRANSFERASE 8 U/L (0-55); ALBUMIN 4.1 GM/DL (3.2-4.5); ALKALINE PHOSPHATASE 280 U/L (40-136); BILIRUBIN,TOTAL 0.3 MG/DL (0.1-1.0); BUN/CREATININE RATIO 15; CALCIUM 8.5 MG/DL (8.5-10.1); CARBON DIOXIDE 23 MMOL/L (21-32); CHLORIDE 110 MMOL/L (98-107); CREATININE SERUM 1.05 MG/DL (0.60-1.30); GFR ESTIMATED > 60; GLUCOSE 102 MG/DL (70-105); POTASSIUM 4.5 MMOL/L (3.6-5.0); SODIUM 140 MMOL/L (135-145); TOTAL PROTEIN 7.2 GM/DL (6.4-8.2)
[2019-08-28 15:01] LABS: BASOPHILS % (AUTO) 0 % (0-10); EOSINOPHILS # (AUTO) 0.1 10^3/uL (0.0-0.3); EOSINOPHILS % (AUTO) 2 % (0-10); HEMATOCRIT 21 % (40-54); LYMPHOCYTES # (AUTO) 0.8 X 10^3 (1.0-4.0); LYMPHOCYTES % (AUTO) 16 % (12-44); MEAN CORPUSCULAR HEMOGLOBIN 27 PG (25-34); MEAN CORPUSCULAR HGB CONC 31 G/DL (32-36); MEAN CORPUSCULAR VOLUME 90 FL (80-99); MEAN PLATELET VOLUME 9.4 FL (7.4-10.4); MONOCYTES # (AUTO) 0.7 X 10^3 (0.0-1.0); MONOCYTES % (AUTO) 13 % (0-12); NEUTROPHILS # (AUTO) 3.6 X 10^3 (1.8-7.8); NEUTROPHILS % (AUTO) 69 % (42-75); PLATELET COUNT 479 10^3/uL (130-400); RED CELL DISTRIBUTION WIDTH 16.2 % (10.0-14.5); WHITE BLOOD COUNT 5.2 10^3/uL (4.3-11.0)
[2019-08-28 15:03] LABS: HEMOGLOBIN 6.5 G/DL (13.3-17.7)
[2019-08-28 15:22] LABS: ALANINE AMINOTRANSFERASE < 6 U/L (0-55); ALKALINE PHOSPHATASE 270 U/L (40-136); BILIRUBIN,TOTAL 0.3 MG/DL (0.1-1.0); BUN/CREATININE RATIO 24; CALCIUM 8.9 MG/DL (8.5-10.1); CARBON DIOXIDE 23 MMOL/L (21-32); CHLORIDE 109 MMOL/L (98-107); CREATININE SERUM 1.55 MG/DL (0.60-1.30); GFR ESTIMATED 43; GLUCOSE 101 MG/DL (70-105); POTASSIUM 4.4 MMOL/L (3.6-5.0); SODIUM 142 MMOL/L (135-145); TOTAL PROTEIN 6.7 GM/DL (6.4-8.2)
[2019-08-30 13:05] LABS: BASOPHILS % (AUTO) 1 % (0-10); EOSINOPHILS # (AUTO) 0.1 10^3/uL (0.0-0.3); EOSINOPHILS % (AUTO) 3 % (0-10); HEMATOCRIT 21 % (40-54); LYMPHOCYTES # (AUTO) 0.5 X 10^3 (1.0-4.0); LYMPHOCYTES % (AUTO) 13 % (12-44); MEAN CORPUSCULAR HEMOGLOBIN 26 PG (25-34); MEAN CORPUSCULAR HGB CONC 30 G/DL (32-36); MEAN CORPUSCULAR VOLUME 89 FL (80-99); MONOCYTES # (AUTO) 0.6 X 10^3 (0.0-1.0); MONOCYTES % (AUTO) 16 % (0-12); NEUTROPHILS # (AUTO) 2.7 X 10^3 (1.8-7.8); NEUTROPHILS % (AUTO) 68 % (42-75); PLATELET COUNT 453 10^3/uL (130-400); RED CELL DISTRIBUTION WIDTH 16.5 % (10.0-14.5)
[2019-08-30 13:08] LABS: HEMOGLOBIN 6.3 G/DL (13.3-17.7)
[~2019-09-12 14:49] MED LIST changes: -NS (IVPB) CANCER CENTER 250 ML ONE
[2019-09-12 15:09] LABS: BASOPHILS % (AUTO) 0 % (0-10); EOSINOPHILS # (AUTO) 0.1 10^3/uL (0.0-0.3); EOSINOPHILS % (AUTO) 2 % (0-10); HEMATOCRIT 30 % (40-54); HEMOGLOBIN 8.7 G/DL (13.3-17.7); LYMPHOCYTES # (AUTO) 0.8 X 10^3 (1.0-4.0); LYMPHOCYTES % (AUTO) 14 % (12-44); MEAN CORPUSCULAR HEMOGLOBIN 29 PG (25-34); MEAN CORPUSCULAR HGB CONC 30 G/DL (32-36); MEAN CORPUSCULAR VOLUME 97 FL (80-99); MEAN PLATELET VOLUME 9.8 FL (7.4-10.4); MONOCYTES # (AUTO) 0.6 X 10^3 (0.0-1.0); MONOCYTES % (AUTO) 11 % (0-12); NEUTROPHILS % (AUTO) 73 % (42-75); PLATELET COUNT 368 10^3/uL (130-400); RED CELL DISTRIBUTION WIDTH 25.3 % (10.0-14.5); WHITE BLOOD COUNT 5.4 10^3/uL (4.3-11.0)
== END 2019-09-23 | disposition home or self-care (01) ==
LOC: ONC 14:49
PROVIDERS: ATTEND Internal Medicine Hematology & Oncology
DX: D50.9 Iron deficiency anemia, unspecified (principal); K90.9 Intestinal malabsorption, unspecified; I10 Essential (primary) hypertension; E78.5 Hyperlipidemia, unspecified; Z79.899 Other long term (current) drug therapy; Z79.01 Long term (current) use of anticoagulants
CPT/HCPCS: 36415; 80053; 82728; 83540; 84443; 85025; 96365; 99213

== ENCOUNTER 2020-01-13 13:22 | Outpatient (RCR) | payer MEDICARE ==
[2019-11-06 15:06] LABS: BASOPHILS % (AUTO) 0 % (0-10); EOSINOPHILS # (AUTO) 0.1 10^3/uL (0.0-0.3); EOSINOPHILS % (AUTO) 1 % (0-10); HEMATOCRIT 39 % (40-54); HEMOGLOBIN 12.5 G/DL (13.3-17.7); LYMPHOCYTES # (AUTO) 0.7 X 10^3 (1.0-4.0); LYMPHOCYTES % (AUTO) 14 % (12-44); MEAN CORPUSCULAR HEMOGLOBIN 31 PG (25-34); MEAN CORPUSCULAR HGB CONC 32 G/DL (32-36); MEAN CORPUSCULAR VOLUME 96 FL (80-99); MEAN PLATELET VOLUME 10.2 FL (7.4-10.4); MONOCYTES # (AUTO) 0.5 X 10^3 (0.0-1.0); MONOCYTES % (AUTO) 9 % (0-12); NEUTROPHILS # (AUTO) 3.9 X 10^3 (1.8-7.8); NEUTROPHILS % (AUTO) 76 % (42-75); PLATELET COUNT 292 10^3/uL (130-400); RED CELL DISTRIBUTION WIDTH 18.9 % (10.0-14.5); WHITE BLOOD COUNT 5.2 10^3/uL (4.3-11.0)
[2019-11-06 15:28] LABS: ALBUMIN 4.2 GM/DL (3.2-4.5); BILIRUBIN,TOTAL 0.2 MG/DL (0.1-1.0); CALCIUM 9.1 MG/DL (8.5-10.1); CREATININE SERUM 1.39 MG/DL (0.60-1.30); POTASSIUM 4.6 MMOL/L (3.6-5.0); TOTAL PROTEIN 7.5 GM/DL (6.4-8.2)
[2020-01-09 15:18] LABS: BASOPHILS % (AUTO) 0 % (0-10); EOSINOPHILS # (AUTO) 0.2 10^3/uL (0.0-0.3); EOSINOPHILS % (AUTO) 4 % (0-10); HEMATOCRIT 36 % (40-54); HEMOGLOBIN 11.3 G/DL (13.3-17.7); LYMPHOCYTES # (AUTO) 0.9 X 10^3 (1.0-4.0); LYMPHOCYTES % (AUTO) 15 % (12-44); MEAN CORPUSCULAR HEMOGLOBIN 32 PG (25-34); MEAN CORPUSCULAR HGB CONC 32 G/DL (32-36); MEAN CORPUSCULAR VOLUME 102 FL (80-99); MEAN PLATELET VOLUME 10.2 FL (7.4-10.4); MONOCYTES # (AUTO) 0.5 X 10^3 (0.0-1.0); MONOCYTES % (AUTO) 8 % (0-12); NEUTROPHILS # (AUTO) 4.7 X 10^3 (1.8-7.8); NEUTROPHILS % (AUTO) 74 % (42-75); PLATELET COUNT 311 10^3/uL (130-400); RED CELL DISTRIBUTION WIDTH 14.7 % (10.0-14.5); WHITE BLOOD COUNT 6.3 10^3/uL (4.3-11.0)
[2020-01-09 15:39] LABS: BILIRUBIN,TOTAL 0.4 MG/DL (0.1-1.0); CALCIUM 8.6 MG/DL (8.5-10.1); CREATININE SERUM 1.35 MG/DL (0.60-1.30); POTASSIUM 5.1 MMOL/L (3.6-5.0); TOTAL PROTEIN 7.3 GM/DL (6.4-8.2)
[~2020-01-13 13:22] MED LIST changes: -FERRIC CARBOXYMALTOSE (CANCER) 750 MG in NS (IVPB) CANCER CENTER 250 ML IV SCH
== END 2020-02-04 | disposition home or self-care (01) ==
LOC: ONC 13:22
PROVIDERS: ATTEND Internal Medicine Hematology & Oncology
DX: D50.9 Iron deficiency anemia, unspecified (principal); K90.9 Intestinal malabsorption, unspecified; I11.9 Hypertensive heart disease without heart failure; E78.5 Hyperlipidemia, unspecified; I48.20 Chronic atrial fibrillation, unspecified; K29.61 Other gastritis with bleeding; J44.9 Chronic obstructive pulmonary disease, unspecified; M19.90 Unspecified osteoarthritis, unspecified site; I25.10 Atherosclerotic heart disease of native coronary artery without angina pectoris; Z79.01 Long term (current) use of anticoagulants; Z98.890 Other specified postprocedural states; Z79.899 Other long term (current) drug therapy; Z95.1 Presence of aortocoronary bypass graft; Z87.19 Personal history of other diseases of the digestive system; Z86.79 Personal history of other diseases of the circulatory system; Z87.891 Personal history of nicotine dependence
CPT/HCPCS: 36415; 80053; 82728; 83540; 85025; 99213

== ENCOUNTER 2020-05-25 14:41 | Outpatient (RCR) | payer MEDICARE ==
[2020-03-04 13:04] LABS: BASOPHILS % (AUTO) 1 % (0-10); EOSINOPHILS # (AUTO) 0.1 10^3/uL (0.0-0.3); EOSINOPHILS % (AUTO) 2 % (0-10); HEMATOCRIT 37 % (40-54); HEMOGLOBIN 11.8 G/DL (13.3-17.7); LYMPHOCYTES # (AUTO) 0.7 X 10^3 (1.0-4.0); LYMPHOCYTES % (AUTO) 15 % (12-44); MEAN CORPUSCULAR HEMOGLOBIN 33 PG (25-34); MEAN CORPUSCULAR HGB CONC 32 G/DL (32-36); MEAN CORPUSCULAR VOLUME 102 FL (80-99); MEAN PLATELET VOLUME 9.9 FL (7.4-10.4); MONOCYTES # (AUTO) 0.6 X 10^3 (0.0-1.0); MONOCYTES % (AUTO) 13 % (0-12); NEUTROPHILS # (AUTO) 3.4 X 10^3 (1.8-7.8); NEUTROPHILS % (AUTO) 70 % (42-75); PLATELET COUNT 378 10^3/uL (130-400); WHITE BLOOD COUNT 4.8 10^3/uL (4.3-11.0)
[2020-03-04 13:27] LABS: ALBUMIN 3.8 GM/DL (3.2-4.5); BILIRUBIN,TOTAL 0.3 MG/DL (0.1-1.0); CALCIUM 8.4 MG/DL (8.5-10.1); CREATININE SERUM 1.3 MG/DL (0.60-1.30); POTASSIUM 4.4 MMOL/L (3.6-5.0); TOTAL PROTEIN 7.2 GM/DL (6.4-8.2)
[2020-05-21 15:16] LABS: BASOPHILS # (AUTO) 0.1 10^3/uL (0.0-0.1); BASOPHILS % (AUTO) 1 % (0-10); EOSINOPHILS # (AUTO) 0.1 10^3/uL (0.0-0.3); EOSINOPHILS % (AUTO) 2 % (0-10); HEMATOCRIT 36 % (40-54); HEMOGLOBIN 11.6 G/DL (13.3-17.7); LYMPHOCYTES % (AUTO) 18 % (12-44); MEAN CORPUSCULAR HEMOGLOBIN 32 PG (25-34); MEAN CORPUSCULAR HGB CONC 32 G/DL (32-36); MEAN CORPUSCULAR VOLUME 100 FL (80-99); MEAN PLATELET VOLUME 10.3 FL (7.4-10.4); MONOCYTES # (AUTO) 0.5 X 10^3 (0.0-1.0); MONOCYTES % (AUTO) 10 % (0-12); NEUTROPHILS # (AUTO) 3.8 X 10^3 (1.8-7.8); NEUTROPHILS % (AUTO) 70 % (42-75); PLATELET COUNT 318 10^3/uL (130-400); WHITE BLOOD COUNT 5.5 10^3/uL (4.3-11.0)
[2020-05-21 15:39] LABS: ALBUMIN 4.1 GM/DL (3.2-4.5); BILIRUBIN,TOTAL 0.4 MG/DL (0.1-1.0); CALCIUM 9.1 MG/DL (8.5-10.1); CREATININE SERUM 1.89 MG/DL (0.60-1.30); POTASSIUM 5.7 MMOL/L (3.6-5.0); TOTAL PROTEIN 7.2 GM/DL (6.4-8.2)
== END 2020-06-02 | disposition home or self-care (01) ==
LOC: ONC 14:41
PROVIDERS: ATTEND Internal Medicine Hematology & Oncology
DX: D50.9 Iron deficiency anemia, unspecified (principal); K90.9 Intestinal malabsorption, unspecified; I11.9 Hypertensive heart disease without heart failure; E78.5 Hyperlipidemia, unspecified; I48.20 Chronic atrial fibrillation, unspecified; K29.61 Other gastritis with bleeding; J44.9 Chronic obstructive pulmonary disease, unspecified; M19.90 Unspecified osteoarthritis, unspecified site; I25.10 Atherosclerotic heart disease of native coronary artery without angina pectoris; Z79.01 Long term (current) use of anticoagulants; Z98.890 Other specified postprocedural states; Z79.899 Other long term (current) drug therapy; Z95.1 Presence of aortocoronary bypass graft; Z87.19 Personal history of other diseases of the digestive system; Z86.79 Personal history of other diseases of the circulatory system; Z87.891 Personal history of nicotine dependence
CPT/HCPCS: 80053; 82728; 83540; 85025; 99213

== ENCOUNTER 2020-08-17 14:32 | Outpatient (RCR) | payer MEDICARE ==
[2020-08-13 14:08] LABS: BASOPHILS % (AUTO) 0 % (0-10); EOSINOPHILS % (AUTO) 0 % (0-10); HEMATOCRIT 32 % (40-54); HEMOGLOBIN 9.8 g/dL (13.3-17.7); LYMPHOCYTES # (AUTO) 0.6 10^3/uL (1.0-4.0); LYMPHOCYTES % (AUTO) 8 % (12-44); MEAN CORPUSCULAR HEMOGLOBIN 29 pg (25-34); MEAN CORPUSCULAR HGB CONC 30 g/dL (32-36); MEAN CORPUSCULAR VOLUME 97 fL (80-99); MEAN PLATELET VOLUME 9.4 fL (9.0-12.2); MONOCYTES # (AUTO) 0.6 10^3/uL (0.0-1.0); MONOCYTES % (AUTO) 8 % (0-12); NEUTROPHILS % (AUTO) 83 % (42-75); PLATELET COUNT 664 10^3/uL (130-400); WHITE BLOOD COUNT 7.3 10^3/uL (4.3-11.0)
[2020-08-13 14:30] LABS: ALANINE AMINOTRANSFERASE 8 U/L (0-55); ALBUMIN 3.2 GM/DL (3.2-4.5); ALKALINE PHOSPHATASE 97 U/L (40-136); BILIRUBIN,TOTAL 0.4 MG/DL (0.1-1.0); BUN/CREATININE RATIO 17; CALCIUM 8.7 MG/DL (8.5-10.1); CARBON DIOXIDE 19 MMOL/L (21-32); CHLORIDE 108 MMOL/L (98-107); CREATININE SERUM 1.07 MG/DL (0.60-1.30); GFR ESTIMATED > 60; GLUCOSE 98 MG/DL (70-105); POTASSIUM 4.4 MMOL/L (3.6-5.0); SODIUM 139 MMOL/L (135-145); TOTAL PROTEIN 6.6 GM/DL (6.4-8.2)
== END 2020-10-02 08:23 | disposition home or self-care (01) ==
LOC: ONC 14:32
PROVIDERS: ATTEND Internal Medicine Hematology & Oncology
DX: D50.9 Iron deficiency anemia, unspecified (principal); K90.9 Intestinal malabsorption, unspecified; I11.9 Hypertensive heart disease without heart failure; E78.5 Hyperlipidemia, unspecified; I48.20 Chronic atrial fibrillation, unspecified; K29.61 Other gastritis with bleeding; J44.9 Chronic obstructive pulmonary disease, unspecified; M19.90 Unspecified osteoarthritis, unspecified site; I25.10 Atherosclerotic heart disease of native coronary artery without angina pectoris; K20.91 Esophagitis, unspecified with bleeding; N28.9 Disorder of kidney and ureter, unspecified; Z79.01 Long term (current) use of anticoagulants; Z98.890 Other specified postprocedural states; Z79.899 Other long term (current) drug therapy; Z95.1 Presence of aortocoronary bypass graft; Z87.19 Personal history of other diseases of the digestive system; Z86.79 Personal history of other diseases of the circulatory system; Z87.891 Personal history of nicotine dependence
CPT/HCPCS: 80053; 82728; 83540; 85025; 99213

== ENCOUNTER → 2020-10-08 | Outpatient (CLI) | payer MEDICARE | LOC: ONC 14:15 | PROVIDERS: ATTEND Internal Medicine | DX: M1A.0610 Idiopathic chronic gout, right knee, without tophus (tophi) (principal) | CPT/HCPCS: 84550; 85652 ==

== ENCOUNTER → 2021-01-06 | Outpatient (RCR) | payer MEDICARE ==
[2020-10-08 14:09] LABS: BASOPHILS % (AUTO) 1 % (0-10); EOSINOPHILS # (AUTO) 0.1 10^3/uL (0.0-0.3); EOSINOPHILS % (AUTO) 1 % (0-10); HEMATOCRIT 36 % (40-54); HEMOGLOBIN 10.3 g/dL (13.3-17.7); LYMPHOCYTES # (AUTO) 0.5 10^3/uL (1.0-4.0); LYMPHOCYTES % (AUTO) 10 % (12-44); MEAN CORPUSCULAR HEMOGLOBIN 28 pg (25-34); MEAN CORPUSCULAR HGB CONC 29 g/dL (32-36); MEAN CORPUSCULAR VOLUME 95 fL (80-99); MEAN PLATELET VOLUME 9.8 fL (9.0-12.2); MONOCYTES # (AUTO) 0.7 10^3/uL (0.0-1.0); MONOCYTES % (AUTO) 13 % (0-12); NEUTROPHILS # (AUTO) 3.9 10^3/uL (1.8-7.8); NEUTROPHILS % (AUTO) 75 % (42-75); PLATELET COUNT 513 10^3/uL (130-400); WHITE BLOOD COUNT 5.2 10^3/uL (4.3-11.0)
[2020-10-08 14:30] LABS: ALBUMIN 3.1 GM/DL (3.2-4.5); BILIRUBIN,TOTAL 0.3 MG/DL (0.1-1.0); CALCIUM 8.9 MG/DL (8.5-10.1); CREATININE SERUM 1.17 MG/DL (0.60-1.30); POTASSIUM 4.3 MMOL/L (3.6-5.0)
[2020-12-31 11:57] LABS: BASOPHILS % (AUTO) 0 % (0-10); EOSINOPHILS # (AUTO) 0.1 10^3/uL (0.0-0.3); EOSINOPHILS % (AUTO) 1 % (0-10); HEMATOCRIT 32 % (40-54); HEMOGLOBIN 9.7 g/dL (13.3-17.7); LYMPHOCYTES # (AUTO) 0.6 10^3/uL (1.0-4.0); LYMPHOCYTES % (AUTO) 9 % (12-44); MEAN CORPUSCULAR HEMOGLOBIN 28 pg (25-34); MEAN CORPUSCULAR HGB CONC 30 g/dL (32-36); MEAN CORPUSCULAR VOLUME 94 fL (80-99); MEAN PLATELET VOLUME 9.9 fL (9.0-12.2); MONOCYTES # (AUTO) 0.7 10^3/uL (0.0-1.0); MONOCYTES % (AUTO) 10 % (0-12); NEUTROPHILS % (AUTO) 81 % (42-75); PLATELET COUNT 328 10^3/uL (130-400); WHITE BLOOD COUNT 7.4 10^3/uL (4.3-11.0)
[2020-12-31 12:24] LABS: ALANINE AMINOTRANSFERASE < 6 U/L (0-55); ALBUMIN 3.3 GM/DL (3.2-4.5); ALKALINE PHOSPHATASE 77 U/L (40-136); BILIRUBIN,TOTAL 0.4 MG/DL (0.1-1.0); BUN/CREATININE RATIO 13; CALCIUM 8.1 MG/DL (8.5-10.1); CARBON DIOXIDE 27 MMOL/L (21-32); CHLORIDE 104 MMOL/L (98-107); GFR ESTIMATED > 60; GLUCOSE 102 MG/DL (70-105); POTASSIUM 4.2 MMOL/L (3.6-5.0); SODIUM 141 MMOL/L (135-145)
[~2021-01-06] MED LIST changes: -GEMF600T8 PO; +GEMF600T88 PO
== END | disposition home or self-care (01) ==
LOC: ONC 10-08 13:55
PROVIDERS: ATTEND Internal Medicine Hematology & Oncology
DX: D50.9 Iron deficiency anemia, unspecified (principal); K90.9 Intestinal malabsorption, unspecified; I11.9 Hypertensive heart disease without heart failure; E78.5 Hyperlipidemia, unspecified; I48.20 Chronic atrial fibrillation, unspecified; K29.61 Other gastritis with bleeding; J44.9 Chronic obstructive pulmonary disease, unspecified; M19.90 Unspecified osteoarthritis, unspecified site; I25.10 Atherosclerotic heart disease of native coronary artery without angina pectoris; K20.91 Esophagitis, unspecified with bleeding; N28.9 Disorder of kidney and ureter, unspecified; Z79.01 Long term (current) use of anticoagulants; Z98.890 Other specified postprocedural states; Z79.899 Other long term (current) drug therapy; Z95.1 Presence of aortocoronary bypass graft; Z87.19 Personal history of other diseases of the digestive system; Z86.79 Personal history of other diseases of the circulatory system; Z87.891 Personal history of nicotine dependence
CPT/HCPCS: 80053; 82728; 83540; 83550; 85025; 99213

== ENCOUNTER 2021-06-22 12:46 | Outpatient (RCR) | payer MEDICARE ==
[2021-03-31 13:46] LABS: BASOPHILS % (AUTO) 1 % (0-10); EOSINOPHILS # (AUTO) 0.1 10^3/uL (0.0-0.3); EOSINOPHILS % (AUTO) 2 % (0-10); HEMATOCRIT 34 % (40-54); HEMOGLOBIN 10.3 g/dL (13.3-17.7); LYMPHOCYTES # (AUTO) 0.8 10^3/uL (1.0-4.0); LYMPHOCYTES % (AUTO) 17 % (12-44); MEAN CORPUSCULAR HEMOGLOBIN 30 pg (25-34); MEAN CORPUSCULAR HGB CONC 31 g/dL (32-36); MEAN CORPUSCULAR VOLUME 97 fL (80-99); MEAN PLATELET VOLUME 9.7 fL (9.0-12.2); MONOCYTES # (AUTO) 0.5 10^3/uL (0.0-1.0); MONOCYTES % (AUTO) 12 % (0-12); NEUTROPHILS % (AUTO) 68 % (42-75); PLATELET COUNT 340 10^3/uL (130-400); WHITE BLOOD COUNT 4.4 10^3/uL (4.3-11.0)
[2021-03-31 14:36] LABS: ALBUMIN 3.6 GM/DL (3.2-4.5); BILIRUBIN,TOTAL 0.3 MG/DL (0.1-1.0); CALCIUM 9.1 MG/DL (8.5-10.1); CREATININE SERUM 1.31 MG/DL (0.60-1.30); POTASSIUM 4.3 MMOL/L (3.6-5.0)
[2021-06-22 13:04] LABS: BASOPHILS % (AUTO) 1 % (0-10); EOSINOPHILS # (AUTO) 0.1 10^3/uL (0.0-0.3); EOSINOPHILS % (AUTO) 2 % (0-10); HEMATOCRIT 37 % (40-54); HEMOGLOBIN 11.5 g/dL (13.3-17.7); LYMPHOCYTES # (AUTO) 0.7 10^3/uL (1.0-4.0); LYMPHOCYTES % (AUTO) 17 % (12-44); MEAN CORPUSCULAR HEMOGLOBIN 32 pg (25-34); MEAN CORPUSCULAR HGB CONC 31 g/dL (32-36); MEAN CORPUSCULAR VOLUME 103 fL (80-99); MEAN PLATELET VOLUME 9.5 fL (9.0-12.2); MONOCYTES # (AUTO) 0.5 10^3/uL (0.0-1.0); MONOCYTES % (AUTO) 13 % (0-12); NEUTROPHILS # (AUTO) 2.6 10^3/uL (1.8-7.8); NEUTROPHILS % (AUTO) 66 % (42-75); PLATELET COUNT 330 10^3/uL (130-400); WHITE BLOOD COUNT 3.9 10^3/uL (4.3-11.0)
[2021-06-22 13:23] LABS: ALBUMIN 3.6 GM/DL (3.2-4.5); BILIRUBIN,TOTAL 0.3 MG/DL (0.1-1.0); CALCIUM 8.8 MG/DL (8.5-10.1); CREATININE SERUM 1.42 MG/DL (0.60-1.30); POTASSIUM 4.1 MMOL/L (3.6-5.0); TOTAL PROTEIN 6.9 GM/DL (6.4-8.2)
== END 2021-06-29 | disposition home or self-care (01) ==
LOC: ONC 12:46
PROVIDERS: ATTEND Internal Medicine Hematology & Oncology
DX: D50.9 Iron deficiency anemia, unspecified (principal); K90.9 Intestinal malabsorption, unspecified; E78.5 Hyperlipidemia, unspecified; I48.20 Chronic atrial fibrillation, unspecified; K29.61 Other gastritis with bleeding; J44.9 Chronic obstructive pulmonary disease, unspecified; M19.90 Unspecified osteoarthritis, unspecified site; I25.10 Atherosclerotic heart disease of native coronary artery without angina pectoris; K20.91 Esophagitis, unspecified with bleeding; N28.9 Disorder of kidney and ureter, unspecified; K21.9 Gastro-esophageal reflux disease without esophagitis; I10 Essential (primary) hypertension; Z79.01 Long term (current) use of anticoagulants; Z98.890 Other specified postprocedural states; Z79.899 Other long term (current) drug therapy; Z95.1 Presence of aortocoronary bypass graft; Z87.19 Personal history of other diseases of the digestive system; Z86.79 Personal history of other diseases of the circulatory system; Z87.891 Personal history of nicotine dependence
CPT/HCPCS: 80053; 82728; 83540; 83550; 85025; 99213

== ENCOUNTER 2021-06-30 10:20 | Outpatient (RCR) | payer MEDICARE ==
[~2021-06-30 10:20] MED LIST changes: +POTA-179 PO
== END 2021-09-24 | disposition home or self-care (01) ==
LOC: ONC 10:20
PROVIDERS: ATTEND Internal Medicine Hematology & Oncology
DX: D50.9 Iron deficiency anemia, unspecified (principal); I10 Essential (primary) hypertension; I25.10 Atherosclerotic heart disease of native coronary artery without angina pectoris; E78.5 Hyperlipidemia, unspecified; E66.9 Obesity, unspecified; Z79.01 Long term (current) use of anticoagulants; Z98.890 Other specified postprocedural states; Z79.899 Other long term (current) drug therapy; Z95.1 Presence of aortocoronary bypass graft; Z87.19 Personal history of other diseases of the digestive system; Z86.79 Personal history of other diseases of the circulatory system; Z87.891 Personal history of nicotine dependence
CPT/HCPCS: 99213